=== PATIENT | male | born 1935 | race Caucasian/White ===

== ENCOUNTER 2019-06-05 15:03 | Inpatient (IN) | payer MEDICARE, BC ==
[~2019-06-05] VITALS: Ht 167.6 cm; Wt 87.1 kg
--- NOTE | 2019-06-05 15:15 | PHYS DOC ---
Past History Past Medical History: Dementia, Hypertension Social History Narrative: lives in a nursing facility Adult General Chief Complaint Chief Complaint: PSYCH EVALUATION HPI HPI Patient is an 83-year-old male who presents to the emergency department for medical clearance, prior to behavioral health unit admission he reportedly lives in a nursing facility, and has had increasing agitation in the setting of underlying dementia. He has no medical complaints at this time. Limited records that are available to me have been reviewed. He is oriented to person and his age but not to time or location. Review of Systems Review of Systems Unable to obtain review of systems, secondary to dementia. Physical Exam Physical Exam PHYSICAL EXAM: CONSTITUTIONAL: Well developed, well nourished HEAD: normocephalic, atraumatic EENT: PERRL, EOMI. Conjunctivae normal color, sclerae non-icteric; moist mucous membranes. NECK: Supple, non-tender; no meningismus. LUNGS: Lungs CTA, breathing even and unlabored. Normal air movement. HEART: Regular rate and rhythm, no murmur CHEST: No deformity; non-tender ABDOMEN: The abdomen is soft, and non-tender, no masses or bruits. EXTREM: Normal ROM; no deformity, no calf tenderness. Normal pulses palpable in all extremities. There is no pedal edema. There is muscle wasting noted to the left upper extremity. SKIN: No rash; no diaphoresis NEURO: Alert; there is cognitive impairment consistent with underlying dementia without any definite focal deficit. Current Patient Data Lab Results Laboratory Tests Test 06/05/19 15:07 White Blood Count 6.7 x10^3/uL Red Blood Count 4.29 x10^6/uL Hemoglobin 12.3 g/dL Hematocrit 38.7 % Mean Corpuscular Volume 90 fL Mean Corpuscular Hemoglobin 29 pg Mean Corpuscular Hemoglobin Concent 32 g/dL Red Cell Distribution Width 14.7 % Platelet Count 172 x10^3/uL Neutrophils (%) (Auto) 69 % Lymphocytes (%) (Auto) 17 % Monocytes (%) (Auto) 10 % Eosinophils (%) (Auto) 5 % Basophils (%) (Auto) 0 % Neutrophils # (Auto) 4.6 x10^3uL Lymphocytes # (Auto) 1.1 x10^3/uL Monocytes # (Auto) 0.6 x10^3/uL Eosinophils # (Auto) 0.3 x10^3/uL Basophils # (Auto) 0.0 x10^3/uL Urine Collection Type Unknown Urine Color Yellow Urine Clarity Clear Urine pH 7.5 Urine Specific [place] 1.020 Urine Protein Trace Urine Glucose (UA) Neg mg/dL Urine Ketones (Stick) Neg mg/dL Urine Blood Neg Urine Nitrite Neg Urine Bilirubin Neg Urine Urobilinogen Dipstick 0.2 mg/dL Urine Leukocyte Esterase Neg Urine RBC 1-2 /HPF Urine WBC 1-4 /HPF Urine Squamous Epithelial Cells Occ /LPF Urine Bacteria 0 /HPF Urine Mucus Mod /LPF Sodium Level 147 mmol/L Potassium Level 4.2 mmol/L Chloride Level 110 mmol/L Carbon Dioxide Level 27 mmol/L Anion Gap 10 Blood Urea Nitrogen 19 mg/dL Creatinine 1.3 mg/dL Estimated GFR (Cockcroft-Gault) 53.0 BUN/Creatinine Ratio 15 Glucose Level 116 mg/dL Calcium Level 8.4 mg/dL Magnesium Level 2.2 mg/dL Total Bilirubin 0.3 mg/dL Aspartate Amino Transf (AST/SGOT) 10 U/L Alanine Aminotransferase (ALT/SGPT) 19 U/L Alkaline Phosphatase 92 U/L Total Protein 7.0 g/dL Albumin 3.2 g/dL Albumin/Globulin Ratio 0.8 EKG EKG []Normal sinus rhythm at a rate of 88 beats for minute, left axis deviation, normal intervals, occasional PVCs, there are no acute ischemic ST/T changes. Radiology/Procedures Radiology/Procedures [] Course & Med Decision Making Course & Med Decision Making Pertinent Labs studies reviewed. (See chart for details) [] Dragon Disclaimer Dragon Disclaimer This electronic medical record was generated, in whole or in part, using a voice recognition dictation system. Departure Departure: Impression: Primary Impression: Dementia with behavioral disturbance Disposition: ADMITTED INPATIENT Condition: STABLE Referrals: PCP,NO (PCP) OCTAVIA OTERO MD Jun 05, 2019 15:15
[2019-06-05 15:45] LABS: BASO % 0 % (0-3); EOS # 0.3 x10^3/uL (0.0-0.7); EOS % 5 % (0-3); HEMATOCRIT 38.7 % (39.0-53.0); HEMOGLOBIN 12.3 g/dL (13.0-17.5); LYMPH # 1.1 x10^3/uL (1.0-4.8); LYMPH % 17 % (24-48); MEAN CORPUSCULAR HEMOGLOBIN 29 pg (25-35); MEAN CORPUSCULAR HGB CONC 32 g/dL (31-37); MEAN CORPUSCULAR VOLUME 90 fL (79-100); MONO # 0.6 x10^3/uL (0.0-1.1); MONO % 10 % (0-9); NEUT # 4.6 x10^3uL (1.8-7.7); NEUT % 69 % (31-73); PLATELET COUNT 172 x10^3/uL (140-400); RED BLOOD COUNT 4.29 x10^6/uL (4.30-5.70); RED CELL DISTRIBUTION WIDTH 14.7 % (11.5-14.5); WHITE BLOOD COUNT 6.7 x10^3/uL (4.0-11.0)
[2019-06-05 15:49] LABS: ALBUMIN 3.2 g/dL (3.4-5.0); ALBUMIN/GLOBULIN RATIO 0.8 (1.0-1.7); CALCIUM 8.4 mg/dL (8.5-10.1); CREATININE 1.3 mg/dL (0.7-1.3); MAGNESIUM 2.2 mg/dL (1.8-2.4); POTASSIUM 4.2 mmol/L (3.5-5.1); TOTAL BILIRUBIN 0.3 mg/dL (0.2-1.0)
[2019-06-05 15:53] LABS: BILIRUBIN,URINE NEG (NEG); CLARITY,URINE CLEAR; COLOR,URINE YELLOW; GLUCOSE,URINE NEG (NEG)
[2019-06-05 15:54] LABS: BACTERIA,URINE 0 /HPF (0-FEW); NITRITE,URINE NEG (NEG); SQUAMOUS EPITHELIAL CELL,UR OCC /LPF; UROBILINOGEN,URINE 0.2 mg/dL (0.2 mg/dL)
[2019-06-05] MEDS ORDERED: GUAI120013 PO (16:24)
[2019-06-05] MEDS ORDERED: DIVA250T PO (16:24)
[2019-06-05] MEDS ORDERED: LANO250L TP (16:24)
[2019-06-05] MEDS ORDERED: LORA-254 PO (16:24)
[2019-06-05] MEDS ORDERED: BUPR150T11 PO (16:24)
[2019-06-05] MEDS ORDERED: DIVA500T4 PO (16:24)
[2019-06-05] MEDS ORDERED: LORA10TA3 PO (16:24)
[2019-06-05] MEDS ORDERED: ATOR20TA58 PO (16:24)
[2019-06-05] MEDS ORDERED: NAPR-634 PO ×2 (16:24)
[2019-06-05] MEDS ORDERED: LEVO50TA5 PO (16:24)
[2019-06-05] MEDS ORDERED: QUET50TA5 PO ×2 (16:24)
--- NOTE | 2019-06-05 16:30 | NUR ---
Admission Note with Justification for Admission to [facility] Patient admitted to [facility] for protective oversight for emergency stabilization of acute psychiatric crisis. Pt admitted from: SNF Mode of arrival: EMS Accompanied By: EMS Precipitating behaviors that initiated intake and admission:patient admitted from [facility] through [facility] ED for reportedly threatening staff, waving his fist at staff, being combative with redirection, following staff while threatening them, exit seeking, and refusing medications Description of failure of out patient attempts at stabilization in previous setting list behavior and medication trials: Facility attempted medication changes and redirection Behaviors and assessment findings upon admission: Patient very quiet and withdrawn on admission. He refused to answer most assessment questions. He was dressed neatly, no skin issues detected. Plan: Admit for protective oversight for adjustment and stabilization of medications, behaviors and mood. Intense treatment regimen including groups, medication adjustments, therapy, consistent regimen for ADL's, self care, and sleep hygiene. Daily monitoring by Inpatient staff, Psychiatry, and Medical Physician.
[2019-06-05 17:07] VITALS: BP 136/81
[2019-06-05] MEDS ORDERED: ACETAMINOPHEN 325 MG TABLET PO PRN (17:45)
[2019-06-05] MEDS ORDERED: MAG HYDROX/AL HYDROX/SIMETH 30 ML ORAL.SUSP PO PRN (17:45)
[2019-06-05] MEDS ORDERED: METHYL SALICYLATE/MENTHOL TOPICAL OINTMENT 57GM TUBE. TP PRN (17:45)
[2019-06-05] MEDS ORDERED: NAPROXEN 250 MG TABLET PO PRN (18:00)
[2019-06-05 18:15] LABS: VAL ACID 30 mcg/mL (50-100)
[2019-06-05] MEDS: ATORVASTATIN CALCIUM 20 MG TABLET PO SCH (20:29)
[2019-06-05] MEDS: buPROPion SR 150 MG TABLET.SA PO SCH (20:30)
[2019-06-05] MEDS: QUEtiapine 50 MG TABLET. PO SCH (20:30)
--- NOTE | 2019-06-05 20:58 | PDOC ---
Exam Note: Yves Note: Please also refer to the separate dictated note~for this date of service dictated separately. Discussed the patient with Nursing staff reviewed the chart.~Reviewed interim history and current functioning. Reviewed vital signs,~Labs/ Radiology~and current medications noted below. Continue current treatment with the changes noted in the dictated addendum note Assessment: Vital Signs/I&O: Vital Signs Date Time Temp Pulse Resp B/P (MAP) Pulse Ox O2 Delivery O2 Flow Rate FiO2 06/05/19 17:07 97.5 89 17 136/81 (99) 96 06/05/19 15:05 Room Air Labs: Laboratory Tests Test 06/05/19 15:07 06/05/19 15:08 White Blood Count 6.7 x10^3/uL (4.0-11.0) Red Blood Count 4.29 x10^6/uL (4.30-5.70) L Hemoglobin 12.3 g/dL (13.0-17.5) L Hematocrit 38.7 % (39.0-53.0) L Mean Corpuscular Volume 90 fL (79-100) Mean Corpuscular Hemoglobin 29 pg (25-35) Mean Corpuscular Hemoglobin Concent 32 g/dL (31-37) Red Cell Distribution Width 14.7 % (11.5-14.5) H Platelet Count 172 x10^3/uL (140-400) Neutrophils (%) (Auto) 69 % (31-73) Lymphocytes (%) (Auto) 17 % (24-48) L Monocytes (%) (Auto) 10 % (0-9) H Eosinophils (%) (Auto) 5 % (0-3) H Basophils (%) (Auto) 0 % (0-3) Neutrophils # (Auto) 4.6 x10^3uL (1.8-7.7) Lymphocytes # (Auto) 1.1 x10^3/uL (1.0-4.8) Monocytes # (Auto) 0.6 x10^3/uL (0.0-1.1) Eosinophils # (Auto) 0.3 x10^3/uL (0.0-0.7) Basophils # (Auto) 0.0 x10^3/uL (0.0-0.2) Urine Collection Type Unknown Urine Color Yellow Urine Clarity Clear Urine pH 7.5 Urine Specific [place] 1.020 Urine Protein Trace (NEG-TRACE) Urine Glucose (UA) Neg mg/dL (NEG) Urine Ketones (Stick) Neg mg/dL (NEG) Urine Blood Neg (NEG) Urine Nitrite Neg (NEG) Urine Bilirubin Neg (NEG) Urine Urobilinogen Dipstick 0.2 mg/dL (0.2 mg/dL) Urine Leukocyte Esterase Neg (NEG) Urine RBC 1-2 /HPF (0-2) Urine WBC 1-4 /HPF (0-4) Urine Squamous Epithelial Cells Occ /LPF Urine Bacteria 0 /HPF (0-FEW) Urine Mucus Mod /LPF Sodium Level 147 mmol/L (136-145) H Potassium Level 4.2 mmol/L (3.5-5.1) Chloride Level 110 mmol/L (98-107) H Carbon Dioxide Level 27 mmol/L (21-32) Anion Gap 10 (6-14) Blood Urea Nitrogen 19 mg/dL (8-26) Creatinine 1.3 mg/dL (0.7-1.3) Estimated GFR (Cockcroft-Gault) 53.0 BUN/Creatinine Ratio 15 (6-20) Glucose Level 116 mg/dL (70-99) H Calcium Level 8.4 mg/dL (8.5-10.1) L Magnesium Level 2.2 mg/dL (1.8-2.4) Total Bilirubin 0.3 mg/dL (0.2-1.0) Aspartate Amino Transferase (AST) 10 U/L (15-37) L Alanine Aminotransferase (ALT) 19 U/L (16-63) Alkaline Phosphatase 92 U/L (46-116) Total Protein 7.0 g/dL (6.4-8.2) Albumin 3.2 g/dL (3.4-5.0) L Albumin/Globulin Ratio 0.8 (1.0-1.7) L Valproic Acid Level 30 mcg/mL (50-100) L Valproic Acid Last Dose Date 06/04/19 Valproic Acid Last Dose Time 2100 Current Medications: Meds: Current Medications Medications (Trade) Dose Ordered Sig/Delfino Route PRN Reason Start Time Stop Time Status Last Admin Dose Admin Atorvastatin Calcium (Lipitor) 20 mg QHS PO 06/05/19 21:00 06/05/19 20:29 Bupropion HCl (Wellbutrin Sr) 75 mg BID PO 06/05/19 21:00 06/05/19 20:30 Divalproex Sodium (Depakote Er) 500 mg HS PO 06/05/19 21:00 06/05/19 20:30 Quetiapine Fumarate (SEROquel) 50 mg HS PO 06/05/19 21:00 06/05/19 20:30 I have reviewed the current psychotropics carefully including drug interactions. Risk benefit ratio favors no change other than as noted in my dictated progress note. Diagnosis: Problems: (1) Anxiety disorder (2) Dementia, vascular, with delusions (3) Dementia, vascular, with depression (4) Dementia in Alzheimer's disease with delusions (5) Dementia in Alzheimer's disease with depression (6) Impulse control disorder MANISH ALVARES MD Jun 05, 2019 20:58
[2019-06-05] MEDS ORDERED: DIVALPROEX ER 500 MG TAB.ER.24H PO SCH (21:00)
[2019-06-05] MEDS: MINERAL OIL/PETROLATUM TOPICAL CREAM 113GM JAR. TP SCH (21:00)
[2019-06-05 23:06] LABS: HEMOGLOBIN A1C 6.3 % (4.8-5.6)
--- NOTE | 2019-06-05 23:52 | NUR ---
Nursing Note The patient was located in his room for this shift and was withdrawn during interactions with this nurse and other staff. The patient took his medication whole. The patient refused to answer assessment questions. The patient is currently sleeping in bed.
[2019-06-06] MEDS: LEVOTHYROXINE 50 MCG TABLET PO SCH (04:40)
[2019-06-06] MEDS: MAGNESIUM HYDROXIDE 2,400 MG/30 ML ORAL.SUSP. PO PRN (04:53)
--- NOTE | 2019-06-06 04:56 | NUR ---
Nursing Note the patient received PRN Milk of Magnesia R/T hard abdomen with poor bowel sounds in all quadrants. The patient cannot recall his last BM.
[2019-06-06 05:47] VITALS: BP 156/86
[2019-06-06 08:08] LABS: THYROXINE 6.7 ug/dL (4.5-12.0)
[2019-06-06] MEDS: NAPROXEN 250 MG TABLET PO SCH (08:49)
[2019-06-06] MEDS: buPROPion SR 150 MG TABLET.SA PO SCH ×2 (08:49→21:25)
[2019-06-06] MEDS: MINERAL OIL/PETROLATUM TOPICAL CREAM 113GM JAR. TP SCH ×2 (08:49→21:00)
[2019-06-06] MEDS: CETIRIZINE HCL 10 MG TABLET PO SCH (08:49)
--- NOTE | 2019-06-06 08:59 | NUR ---
Patient attempted to stand up from wheelchair in dining room, became unsteady and almost fell. Nurse was able to catch him and assist him backnto the wheelchair. Fall education provided to patient and he was cautioned to ask for assistance with transfers and/or ambulation. Patient assisted to day room in wheelchair and staff advised that he is unsteady at this time.
[2019-06-06] MEDS ORDERED: DIVALPROEX ER 250 MG TAB.ER.24H. PO SCH (09:00)
--- NOTE | 2019-06-06 11:04 | NUR ---
Patient observed to be combative with staff in day room. He stated he needed to go to the bathroom and when staff attempted to assist him he attempted to hit them. Patient in wheelchair with a chair alarm. Patient arguing with staff and attempting to involve peers in argument. Patient states "you better keep your hands off me" and eventually agreed to be taken to the bathroom in wheelchair. Patient is not cooperative with 2 person assist for ambulation and becomes increasingly combative to staff when assistance is offered or attempted.
--- NOTE | 2019-06-06 11:30 | NUR ---
Patient in [facility] r/t combativeness and refusing to not get out of chair unassisted. Nurse observed him wandering in [facility], he calmed down and was able to attend lunch in dining room with peers. No PRNs given as patient has scheduled seroquel at 1200. Compliant with medications.
[2019-06-06] MEDS: QUEtiapine 50 MG TABLET. PO SCH ×2 (12:50→21:26)
[2019-06-06 14:32] LABS: THYROID STIM HORMONE (TSH) 3.639 uIU/mL (0.358-3.740)
--- NOTE | 2019-06-06 14:41 | NUR ---
PSYCHOSOCIAL ASSESSMENT ADMISSION DATE: 06/05/19 CONTACT INFORMATION: DPOA/Guardian Contact Name: Brie Carmen Contact Address: [place], [place] Contact Phone #: [phone] ETHNIC ORIGIN: REASONS FOR ADMISSION: Aggressive, Agitated, and Combative ADDITIONAL ADMISSION COMMENTS: Per pt. intake, pt. was exit seeking, noncompliant with meds, physically aggressive towards staff, verbal altercation with peer, insomnia, peeing on the floor, and agitated. REASON FOR ADMISSION IN PATIENT/FAMILY'S OWN WORDS: Per pt. , "He's been aggressive." "Hitting and kicking" According to pt. , pt. "doesn't sleep much at night." PATIENT/FAMILY EXPECTATIONS FOR ADMISSION: Per pt. , "I hope they can adjust his medications to keep him calm." LIVING SITUATION: Patient lives with: [facility] Contact Name: [facility] Contact Address: [place], [place] Contact Phone #: [phone] Contact Fax #: [phone] FAMILY RELATIONS: Marital Status: # of Marriages: 1 Pt. was able to share his 's name is Brie. # of Children: 3 Pt. stated he had a boy and two girls but was only able to recall two names. [facility] Family Support: Concerned and Cooperative SIGNIFICANT PSYCHIATRIC/MEDICAL HISTORY: Psychiatric/Treatment History: Pt. shared, "Dementia" from his two brain injuries. After the first brain injury, pt. was "in a coma for thirteen days." "He has never been the same after the second one." Pt. did see a psychiatrist after the brain injuries, "until they moved away." Per pt. intake, pt. has Vascular Dementia with Behaviors, TBI in 2002 and 2005, Depression, and Anxiety. Pertinent Family History: Pt. has no known pertinent family history. HISTORICAL DATA: Childhood Environment: According to pt. , pt. childhood was "kind of sad." Pt. "dad when he was [age]." "His mother worked all the time." Pt. had one older brother and one younger sister. Psychological Abuse: None Drug Abuse History last 12 months: No Comment: According to pt. , "Never." PERSONAL HISTORY: Vocational history: Pt. worked at the "sale barn" around "cattle" according to his . service: N Christian background: Pt. said "Yea" "Pentecostalism" Pt. shared pt. "always went to yazdanism until he got hurt the last time." "Pentecostalism or Presbyterian" Sexual orientation: Heterosexual Educational Level: Pt. graduated from high school. Past/Present Interests/Hobbies: According to pt. , pt. has no current hobbies but use to enjoy "riding a horse." "His hobby was working." Financial support/resources: [employer] Monthly income: $1000 Person handling finances: Brie Carmen Do you have a history of legal problems: N Cultural considerations: Per pt. , "No, not really." SOCIAL RELATIONSHIPS-CURRENT/PAST: [facility]iatrist: [facility] PCP: Dr. Emile Kyle Counselor/Therapist: None [employer]: None Support Group: None Coding Technician/Manager Technical Support: None Other relationships: None STRENGTHS & WEAKNESSES: Patient's strengths: Stable living arrangement and Approachable Patient's weaknesses: Physically Aggressive and Verbally Aggressive PRELIMINARY PLAN OF TREATMENT: Preliminary plan: Medication Stabilization, Monitor Med Effects, Control abnormal behavior, Decrease Outbursts, and Decrease Aggression DISCHARGE PLANNING: Discharge planning/disposition: Current Living Arrangement ADDITIONAL INFORMATION: Pt. struggled to answer most of the questions for this assessment. Pt. , Brie, was contacted for clarification and verification of the information. Pt. shared pt. has "fallen several times", sleeps in the recliner at his facility, and has been gaining weight.
[2019-06-06 15:50] VITALS: BP 125/67
--- NOTE | 2019-06-06 16:18 | HP ---
ADMIT DATE: 06/05/2019 PSYCHIATRIC ADMISSION HISTORY/EVALUATION This late entry 06/05/2019 covers the elements not covered in my initial note. I met with the patient evening of 06/05/2019, previously discussed with Pau Cullen, benefits coordinator and nursing staff, reviewed information from [facility] on a referral from Dr. Emile Kyle, patient's primary care physician and information from the [facility] who [facility] and recommended inpatient psychiatric stabilization on account of his worsening confusion, threatening staff, waving his fist at staff, being combative with redirection, following staff while threatening them, exit seeking and refusing medications. The patient has failed outpatient psychiatric interventions. CHIEF COMPLAINT: "No." HISTORY OF PRESENT ILLNESS: The patient has a long history of dementia, multifactorial including consequent to traumatic brain injury on 2 separate occasions. He has been residing at the above facility for some time, but recently getting increasingly agitated, paranoid, and impulsive. He has had sleep and appetite changes. No active suicidal or homicidal ideation, but the behaviors have been quite dangerous, unmanageable and failed outpatient psychiatric interventions with [facility] and changes in his psychotropics. No clear history of bipolar disorder. PAST PSYCHIATRIC HISTORY: As above. MEDICAL HISTORY: Positive for hyperlipidemia, hypothyroidism, TBI x 2 and chronic constipation. ACCU-CHEKS: None. DIET: Mechanical soft. Takes his medications whole. Ambulates, ad-kathy. CODE STATUS: DNR. DRUG ALLERGIES: Negative. CURRENT PSYCHOTROPICS: Ativan 1 mg every 6 hours p.r.n. anxiety, Wellbutrin 75 mg b.i.d., Depakote ER 250 mg daily, 500 mg at bedtime, Seroquel 50 mg at noon and at bedtime. FAMILY HISTORY: Noncontributory. SOCIAL HISTORY: No history of alcohol, drug abuse, physical, sexual or elder abuse. He is not known to be a perpetrator. REACTION TO HOSPITALIZATION: The patient oblivious of this. ASSETS: Supportive living at the [facility] facility. MENTAL STATUS EXAMINATION: I met with the patient at length individually evening of 06/05/2019 in his room. He is oriented to himself, not very verbal. Insight, judgment, recent and remote memory, attention, concentration, fund of knowledge poor, consistent with his diagnosis. He was quite paranoid, depressed, anxious and restless. LABORATORY DATA: Reviewed. 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 Rest unchanged as noted above. PLAN: Admit to Geropsychiatry Unit at [facility]. I will see the patient daily individually from a psychiatric standpoint. Medical followup with Dr. Soria. Continue the patient on his current psychotropics. Check a valproic acid level, adjust Depakote to reach therapeutic level. May add an SSRI agent since he seems to have some mood and anxiety symptoms with some obsessive thought processes, worsening his agitation and impulsivity. We will make further adjustments as clinically indicated. ESTIMATED LENGTH OF STAY: A 10-12 days. DISPOSITION: Plans back to [facility] when stable. MAN Rosanne ALVARES MD DR: COLLINS/marzena JOB#: [id number] / [id number]
--- NOTE | 2019-06-06 20:43 | PDOC ---
Exam Note: Yves Note: Please also refer to the separate dictated note~for this date of service dictated separately.~Patient seen individually. Discussed the patient with Nursing staff reviewed the chart.~Reviewed interim history and current functioning. Reviewed vital signs,~Labs/ Radiology~and current medications noted below. Continue current treatment with the changes noted in the dictated addendum note Assessment: Vital Signs/I&O: Vital Signs Date Time Temp Pulse Resp B/P (MAP) Pulse Ox O2 Delivery O2 Flow Rate FiO2 06/06/19 15:50 98.4 97 16 125/67 (86) 89 06/05/19 15:05 Room Air I & O 06/05/19 06/05/19 06/06/19 15:00 23:00 07:00 Intake Total 100 ml Balance 100 ml Current Medications: Meds: Current Medications Medications (Trade) Dose Ordered Sig/Delfino Route PRN Reason Start Time Stop Time Status Last Admin Dose Admin Atorvastatin Calcium (Lipitor) 20 mg QHS PO 06/05/19 21:00 06/05/19 20:29 Bupropion HCl (Wellbutrin Sr) 75 mg BID PO 06/05/19 21:00 06/06/19 08:49 Divalproex Sodium (Depakote Er) 250 mg DAILY PO 06/06/19 09:00 06/06/19 17:02 DC 06/06/19 08:49 Divalproex Sodium (Depakote Er) 500 mg HS PO 06/05/19 21:00 06/06/19 17:02 DC 06/05/19 20:30 Levothyroxine Sodium (Synthroid) 50 mcg DAILY06 PO 06/06/19 06:00 06/06/19 04:40 Quetiapine Fumarate (SEROquel) 50 mg HS PO 06/05/19 21:00 06/05/19 20:30 Quetiapine Fumarate (SEROquel) 50 mg NOON PO 06/06/19 12:00 06/06/19 12:50 Multi-Ingred Cream/Lotion/Oil/ Oint (Hydrocerin) 1 janelle BID TP 06/05/19 21:00 06/06/19 08:49 Cetirizine HCl (ZyrTEC) 10 mg DAILY PO 06/06/19 09:00 06/06/19 08:49 Naproxen (Naprosyn) 250 mg DAILY PO 06/06/19 09:00 06/06/19 08:49 I have reviewed the current psychotropics carefully including drug interactions. Risk benefit ratio favors no change other than as noted in my dictated progress note. 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
[2019-06-06] MEDS: ATORVASTATIN CALCIUM 20 MG TABLET PO SCH (21:25)
[2019-06-06] MEDS: DIVALPROEX ER 500 MG TAB.ER.24H PO SCH (21:26)
[2019-06-06] MEDS: LORazepam 1 MG TABLET PO PRN (23:13)
--- NOTE | 2019-06-06 23:23 | CONS ---
DATE OF CONSULTATION: 06/06/2019 REASON FOR CONSULTATION: Medical management. HISTORY OF PRESENT ILLNESS: The patient is an 83-year-old male patient, a resident of the [facility], who was admitted to this unit on account of threatening staff, waving his fist at staff, being combative with redirection, following staff while threatening them, exit seeking, refusing medication, all this in a background of major neurocognitive disorder, vascular Alzheimer with delusion, depression, behavioral disturbances; anxiety disorder, unspecified and impulse control disorder. PAST MEDICAL HISTORY: Significant for hyperlipidemia, hypothyroidism, traumatic brain injury x 2 and chronic constipation. PAST PSYCHIATRIC HISTORY: Significant for dementia, depression, anxiety. ALLERGIES: He has no known drug allergies. MEDICATIONS: He is currently on following medications: He is on loratadine 10 mg once a day, atorvastatin calcium 20 mg once a day, naproxen 220 mg every 8 hours, divalproex sodium 150 mg daily, divalproex 500 mg at bedtime, Wellbutrin extended release 75 mg twice a day, quetiapine fumarate 50 mg at noon and 50 mg at bedtime. He is also on lorazepam 1 mg every 6 hours, Mucinex extended release 1200 mg twice a day, levothyroxine sodium 50 mcg once a day and Eucerin Original Lotion applied topically twice a day for dry itchy skin. FAMILY HISTORY: Noncontributory. SOCIAL HISTORY: He lives in [facility]. He does not really give useful information. PHYSICAL EXAMINATION: GENERAL: When I examined him, the patient was sitting comfortably in his wheelchair, in no apparent distress. There is no pallor, jaundice, cyanosis or thyromegaly. No jugular venous distention. No lower limb edema. VITAL SIGNS: His heart rate was 97, blood pressure was 125/67, temperature was 98.4, respiratory rate was 16, and oxygen saturation was 98%. HEAD, EYES, EARS, NOSE AND THROAT: Showed normocephalic, atraumatic. NECK: Supple. HEART: Showed normal first and second heart sounds with no gallop, rub or murmur. CHEST: Clear to auscultation. No crepitation or rhonchi. ABDOMEN: Distended, soft, nontender. No guarding or rigidity. No organomegaly. All hernial orifices intact. Bowel sounds normal. NEUROLOGIC: He is apparently demented, but without any obvious lateralizing sign. All his cranial nerves are intact. He moves upper extremities without difficulty; however, he is mostly wheelchair bound. He requires assistance with walking. LABORATORY DATA: Showed a white cell count of 6700, hemoglobin 12, hematocrit 38, MCV 90 and platelet count of 172,000. His chemistry showed a serum sodium 147, potassium 4.2, chloride 110, bicarbonate 27, anion gap of 10, BUN 19, creatinine 1.3, estimated GFR was 53 mL per minute, his glucose 116, calcium was 8.4, magnesium 2.2. Total bilirubin, AST, ALT, alkaline phosphatase were normal. Total protein 7, albumin 3.2. His hemoglobin A1c was 6.3%. Serum iron 29, TIBC was 251 and iron saturation was 12. His serum triglycerides were 172, total cholesterol was 168, LDL was 89, VLDL was 34, HDL was 45 and the ratio was 3. His serum vitamin B12 was only 248 pg/mL and 25-hydroxy vitamin D was only 11.4, which is extremely low. His TSH, total T4 and total T3 are normal. His urinalysis was essentially unremarkable. Toxic screen showed that his valproic acid was only 30 mcg/mL, which is definitely subtherapeutic. His treponema pallidum antibodies were nonreactive. Examination of his right foot showed that he has an infected right toe with possible paronychia versus gouty arthritis. His white cell count was only 6,700. He is afebrile with a temperature of 98.4. PLAN: My plan is to replenish his vitamin B12 and vitamin D. I have already started him on cyanocobalamin 1000 mcg intramuscular once a week for 4 weeks and then monthly thereafter and he was started also on cholecalciferol 50,000 units p.o. once a week. I will arrange for him to have his x-ray of his right big toe. I will also check his uric acid, sed rate and CRP and might have to eventually do a bone scan if the x-ray does not show any evidence of osteomyelitis. ALFREDO SHEPARD MD DR: KUN/marzena JOB#: [id number] / [id number]
--- NOTE | 2019-06-07 02:10 | NUR ---
Nursing Note The patient was very irritable and resistive with cares this shift. When staff was helping the patient to bed the patient became combative. The patient did take his medication whole. The patient is currently awake in his room.
[2019-06-07] MEDS: LEVOTHYROXINE 50 MCG TABLET PO SCH (05:46)
[2019-06-07 06:08] VITALS: BP 138/84
[2019-06-07 07:05] LABS: BASO % 0 % (0-3); EOS # 0.2 x10^3/uL (0.0-0.7); EOS % 3 % (0-3); HEMATOCRIT 42.2 % (39.0-53.0); HEMOGLOBIN 13.2 g/dL (13.0-17.5); LYMPH % 13 % (24-48); MEAN CORPUSCULAR HEMOGLOBIN 28 pg (25-35); MEAN CORPUSCULAR HGB CONC 31 g/dL (31-37); MEAN CORPUSCULAR VOLUME 90 fL (79-100); MONO # 0.6 x10^3/uL (0.0-1.1); MONO % 7 % (0-9); NEUT # 6.4 x10^3uL (1.8-7.7); NEUT % 78 % (31-73); PLATELET COUNT 186 x10^3/uL (140-400); RED BLOOD COUNT 4.66 x10^6/uL (4.30-5.70); WHITE BLOOD COUNT 8.3 x10^3/uL (4.0-11.0)
[2019-06-07 07:15] LABS: C REACTIVE PROTEIN 25.9 mg/L (0-3.3); CALCIUM 8.4 mg/dL (8.5-10.1); GFR 71.7; POTASSIUM 4.2 mmol/L (3.5-5.1); URIC ACID 6.9 mg/dL (3.5-7.2)
[2019-06-07 08:19] LABS: SEDIMENTATION RATE 32 (0-15)
[2019-06-07] MEDS: CHOLECALCIFEROL (VITAMIN D3) 50,000 UNIT CAPSULE PO SCH (08:27)
[2019-06-07] MEDS: buPROPion SR 150 MG TABLET.SA PO SCH ×2 (08:27→20:13)
[2019-06-07] MEDS: CYANOCOBALAMIN (VITAMIN B-12) 1,000 MCG/ML VIAL IM SCH (08:27)
[2019-06-07] MEDS: NAPROXEN 250 MG TABLET PO SCH (08:28)
[2019-06-07] MEDS: CETIRIZINE HCL 10 MG TABLET PO SCH (08:28)
[2019-06-07] MEDS: MINERAL OIL/PETROLATUM TOPICAL CREAM 113GM JAR. TP SCH ×2 (08:28→21:00)
--- NOTE | 2019-06-07 09:30 | RAD ---
Three-view right foot study Clinical indications: Swollen and red big toe. FINDINGS: There is a nondisplaced longitudinal fracture of the proximal lateral corner of the first distal phalanx. No dislocation or lytic process is evident. Small plantar spur of the calcaneus is seen. IMPRESSION: Nondisplaced fracture of the first distal phalanx. Electronically signed by: Zechariah Briscoe MD (06/07/2019 9:27 AM) [facility]
--- NOTE | 2019-06-07 10:30 | NUR ---
SW spoke to Candie, Care Plan Nurse at [facility], to share contact information for this SW.
[2019-06-07] MEDS: QUEtiapine 50 MG TABLET. PO SCH ×2 (12:19→20:14)
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
--- NOTE | 2019-06-07 15:41 | NUR ---
Patient arrived 06/05 with a swollen big toe on his right foot. Dr. Soria saw patient 06/06 and ordered labs and an x-ray. An x-ray showed R. great toe broken. CRP 25.9. ESR 32. Uric acid level normal at 6.9. Will advise Dr. Soria at rounds.
[2019-06-07 15:50] VITALS: BP 116/64
[2019-06-07] MEDS: QUEtiapine 25 MG TABLET. PO SCH (17:08)
--- NOTE | 2019-06-07 17:47 | NUR ---
Dr. Soria to consult ortho about xray tomorrow at [place].
[2019-06-07] MEDS: DIVALPROEX ER 500 MG TAB.ER.24H PO SCH (20:14)
[2019-06-07] MEDS: ATORVASTATIN CALCIUM 20 MG TABLET PO SCH (20:14)
[2019-06-07] MEDS: LORazepam 1 MG TABLET PO PRN (20:14)
--- NOTE | 2019-06-07 23:44 | PN ---
DATE: 06/06/2019 PSYCHIATRIC PROGRESS NOTE This late entry 06/06/2019 covers elements not covered in my initial note. SUBJECTIVE: I met with the patient evening of 06/06/2019. Per information from CLEMENTE Lorenzana, the patient's valproic acid level is 30. He is confused. When questioned, he feels he is in [place], [place]. Gait is unsteady, had to be in the west hallway earlier in the day due to agitation. We are checking a uric acid level, questionable gout. REVIEW OF SYSTEMS: Ambulation impaired. No CV, , pulmonary, eye, ENT system symptoms on review. Reliability poor. MENTAL STATUS EXAM: Oriented to himself. Insight, judgment, recent and remote memory, attention, concentration, fund of knowledge poor, consistent with his diagnosis mentioned in my initial note. PLAN: Change the patient's Depakote to Depakote ER 1000 mg p.o. at bedtime. Check CBC, CMP, valproic acid level in 3 days. Rest unchanged including Wellbutrin, Seroquel. MAN Rosanne ALVARES MD DR: COLLINS/marzena JOB#: [id number] / [id number]
--- NOTE | 2019-06-07 23:57 | PN ---
DATE: 06/07/2019 SUBJECTIVE: The patient was seen today, met with the staff, chart reviewed. The patient is currently on wheelchair. The patient admits to having problems with anger control. The patient has been indulging self-destructive behavior, trying to break a door handle, and exit-seeking behaviors. The patient is difficult to redirect, also exhibiting increased confusion and agitation. OBSERVATION: VITAL SIGNS: Temperature 97.6, blood pressure 138/84, pulse 88, respirations 20, O2 sat 96%. Slept about less than an hour. The patient's appetite decreased. The patient's behavior continues to worsen. It was difficult to manage. The patient's current medications include Seroquel 50 mg at night and 25 mg t.i.d., Seroquel 25 mg q. 4 hours p.r.n., Depakote 1000 mg at bedtime, bupropion 75 mg twice a day. The patient is not having any major side effects. LABORATORY DATA: The patient's lab reviewed. The patient's hemoglobin is 13.2. ESR 32, hemoglobin A1c is 6.3. The patient's Depakote level was 30. ASSESSMENT: 1. 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 2. Anxiety disorder, unspecified. 3. Impulse control disorder, unspecified. LENGTH OF STAY: 5-7 days. ОЛЬГА CURTIS MD DR: DOUG/marzena JOB#: [id number] / [id number]
--- NOTE | 2019-06-08 00:17 | NUR ---
Nursing Note the patient was located in the day room for his medication and assessment. The patient remains withdrawn and irritable. The patient continues to be resistive with all cares. The patient received PRN Ativan with his HS medication R/T agitation and aggression with HS cares.
[2019-06-08] MEDS: LEVOTHYROXINE 50 MCG TABLET PO SCH ×2 (05:39→08:55)
[2019-06-08 06:09] VITALS: BP 178/92
[2019-06-08 06:22] VITALS: BP 107/75
[2019-06-08] MEDS: QUEtiapine 25 MG TABLET. PO SCH ×3 (08:55→17:40)
[2019-06-08] MEDS: NAPROXEN 250 MG TABLET PO SCH (08:55)
[2019-06-08] MEDS: CETIRIZINE HCL 10 MG TABLET PO SCH (08:55)
[2019-06-08] MEDS: buPROPion SR 150 MG TABLET.SA PO SCH ×2 (08:56→19:56)
[2019-06-08] MEDS: MINERAL OIL/PETROLATUM TOPICAL CREAM 113GM JAR. TP SCH ×2 (09:01→20:00)
--- NOTE | 2019-06-08 09:52 | NUR ---
Activity Therapy Assessment Completed based on observation and notes as Pt. was unable to answer assessment questions. Pt. was using a wheelchair due to near falls and an unsteady gait upon admission. However, Pt. is resistant to the chair and now uses a walker but remains unsteady on his feet. Pt. has a history of stroke and therefore has limited verbal capacity. He answers questions with short words or phrases and has difficulty with complex or long questions. Pt. is often around group but rarely engages. Pt. will benefit from direct prompting and one on one engagement. Pt. ca be restless, resistant, and combative with cares. Pt. benefits from reminders and repetition for completing tasks. According to Pt. 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 He has no hobbies or interests outside of work and horses. Pt. has three children and has difficulty recalling their names. Pt. memory is limited- he is aware he is not at home but his short term memory seems limited and he has difficulty recalling facts or distant memories. Initial goal aimed to increase engagement: Pt. will participate in three Activity Therapy groups or individual sessions before discharge.
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
--- NOTE | 2019-06-08 10:43 | NUR ---
TIAN spoke to pt. , Brie, to give her an update and to inform her about pt. broken toe. TIAN spoke to Ada, Care Plan Nurse at [facility], to inform her about pt. broken toe. Candie reported pt. did have a fall on 06/04/2019.
--- NOTE | 2019-06-08 11:18 | TX PLAN ---
Interdisciplinary Tx Plan Admission Information Jun 05, 2019 at 16:30 Legal Status (on Admission): Voluntary DPOA/Guardian Name: Brie Carmen Contact Other Contact Name: [facility] Gaby Other Contact Verified Code Status: DNR Allergies: Coded Allergies: No Known Drug Allergies (Unverified , 06/05/19) Estimated Length of Stay: 10 Diagnoses Primary Diagnosis: Major Neurocognitive Disorder, Vascular Alzheimer's with Delusions, Depression with BD, Anxiety Disorder Unspecified, and Impulse Control Disorder Reasons for Admission: Aggressive, Agitated, Combative Problem in Patient's Words: Per pt. , "He's been aggressive." "Hitting and kicking" Problems Active Problems: Per pt. intake, pt. was exit seeking, noncompliant with meds, physically aggressive toward staff, verbal altercation with peer, insomnia, peeing on the floor, and agitated. Inactive Problems: Pt. is medication compliant. Pt Strengths/Limitations Ability for Barton: Poor Cognitive Functioning/Ability: Poor Communication Skills/Ability: Poor Financial Resources: Fair Insight/Judgement: Poor Intellectual Ability: Fair Physical Health: Poor Social Skills: Poor Stability in Family: Fair Verbal Skills: Fair Discharge Criteria Discharge Criteria: OP monitor medical prob, Improved behavior, Improved mood/thought Preliminary Discharge Plan Preliminary DC Plan: Current Living Arrange. Special Precautions Special Precautions: Agitation/Assault Fall Risk: High Initial D/C Plan Pt. will return to [facility] once stable. Identified Discharge Needs: Follow up with PCP Currently Utilized Resources Currently Utilized Resources/P: PCP [facility] Identified Problems/Hx/Goals Objectives/Short-Term Goals Short Term Goals: Control abnormal behavior, Dec. Aggression, Dec. Outbursts, Medication Stabilization, Monitor Med Effects Short Term Goals in Patient's: Pt. unable to verbalize. 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 Education: Pt. graduated from high school. Community Follow-up Follow Up with PCP. Community Provider/Family Inpu: Per pt. , "I hope they can adjust his medications to keep him calm." Treatment Plan Explained Patient/Inking Machine Tender had this treatment plan explained to him/her as indicated by the signature below and has been given the opportunity to ask questions and make suggestions: Date: Patient/Inking Machine Tender Signature: Patient/Inking Machine Tender Decline: KENNETH Alatorre Jun 08, 2019 11:18
[2019-06-08 16:24] VITALS: BP 132/75
[2019-06-08] MEDS: LORazepam 1 MG TABLET PO PRN (17:40)
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
--- NOTE | 2019-06-08 19:54 | NUR ---
WEEKLY ACTIVITY THERAPY NOTE Date of Admission: 06/05/2019 Date of AT Assessment: 06/08/2019 Goal aimed: to increase engagement Initial goal: Pt. will participate in three Activity Therapy groups or individual sessions before discharge. Weekly progress towards goal: on track Group participation level: zero Weekly highlights: meet/assess Pt Behaviors observed: unsteady gait, restless, around group often but rarely engages Plan: no change to goal Beneficial adaptations: direct prompting
[2019-06-08] MEDS: ATORVASTATIN CALCIUM 20 MG TABLET PO SCH (19:56)
[2019-06-08] MEDS: QUEtiapine 50 MG TABLET. PO SCH (19:56)
[2019-06-08] MEDS: DIVALPROEX ER 500 MG TAB.ER.24H PO SCH (19:56)
--- NOTE | 2019-06-08 20:45 | PN ---
DATE: 06/08/2019 SUBJECTIVE: The patient was seen today, met with the staff, chart reviewed. The patient continues to have problems, refusing meds, resistive to care. The patient also received Ativan as p.r.n. for increased agitation. The patient continues to complain of pain in his right toe. The patient is on wheelchair. OBSERVATION: VITAL SIGNS: Temperature 97.2, blood pressure 178/92, pulse 199, respirations 22, O2 sat 91%. Slept about 6 hours last night. The patient's appetite is fair. LABORATORY DATA: The patient's lab reviewed. MEDICATIONS: The patient's current medications include Seroquel 50 mg at night and 25 mg t.i.d., Seroquel 25 mg q. 4 hours p.r.n., Depakote 1000 mg at bedtime, bupropion 75 mg b.i.d. The patient denies of any side effects. ASSESSMENT: Major neurocognitive disorder secondary to vascular, Alzheimer's with delusions, depression, behavioral disturbances and anxiety disorder, unspecified and impulse control disorder, unspecified. PLAN: Continue with the treatment. LENGTH OF STAY: 3-5 days. ОЛЬГА CURTIS MD DR: DOUG/marzena JOB#: [id number] / [id number]
[2019-06-09] MEDS: LEVOTHYROXINE 50 MCG TABLET PO SCH (05:39)
[2019-06-09 06:58] LABS: BASO % 0 % (0-3); EOS # 0.4 x10^3/uL (0.0-0.7); EOS % 5 % (0-3); HEMATOCRIT 37.7 % (39.0-53.0); HEMOGLOBIN 12.2 g/dL (13.0-17.5); LYMPH % 14 % (24-48); MEAN CORPUSCULAR HEMOGLOBIN 29 pg (25-35); MEAN CORPUSCULAR HGB CONC 32 g/dL (31-37); MEAN CORPUSCULAR VOLUME 90 fL (79-100); MONO # 0.7 x10^3/uL (0.0-1.1); MONO % 10 % (0-9); NEUT # 5.1 x10^3uL (1.8-7.7); NEUT % 71 % (31-73); PLATELET COUNT 172 x10^3/uL (140-400); RED CELL DISTRIBUTION WIDTH 14.7 % (11.5-14.5); WHITE BLOOD COUNT 7.3 x10^3/uL (4.0-11.0)
[2019-06-09 07:11] LABS: ALBUMIN 2.9 g/dL (3.4-5.0); ALBUMIN/GLOBULIN RATIO 0.8 (1.0-1.7); ALK PHOS 83 U/L (46-116); ALT (SGPT) 20 U/L (16-63); ANION GAP 7 (6-14); AST (SGOT) 15 U/L (15-37); BLOOD UREA NITROGEN 19 mg/dL (8-26); BUN/CREATININE RATIO 16 (6-20); CALCIUM 8.3 mg/dL (8.5-10.1); CARBON DIOXIDE 30 mmol/L (21-32); CHLORIDE 109 mmol/L (98-107); CREATININE 1.2 mg/dL (0.7-1.3); GFR 58.1; GLUCOSE 99 mg/dL (70-99); POTASSIUM 3.9 mmol/L (3.5-5.1); SODIUM 146 mmol/L (136-145); TOTAL BILIRUBIN 0.3 mg/dL (0.2-1.0); TOTAL PROTEIN 6.4 g/dL (6.4-8.2)
[2019-06-09 07:12] LABS: VAL ACID 55 mcg/mL (50-100)
[2019-06-09 07:18] VITALS: BP 125/74
[2019-06-09] MEDS: NAPROXEN 250 MG TABLET PO SCH (08:25)
[2019-06-09] MEDS: QUEtiapine 25 MG TABLET. PO SCH ×3 (08:25→18:34)
[2019-06-09] MEDS: CETIRIZINE HCL 10 MG TABLET PO SCH (08:25)
[2019-06-09] MEDS: buPROPion SR 150 MG TABLET.SA PO SCH ×2 (08:25→19:46)
[2019-06-09] MEDS: MINERAL OIL/PETROLATUM TOPICAL CREAM 113GM JAR. TP SCH ×2 (09:00→19:45)
[2019-06-09 09:54] VITALS: BP 126/78
[2019-06-09] MEDS: LORazepam 1 MG TABLET PO PRN (14:45)
[2019-06-09 16:27] VITALS: BP 160/77
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
--- NOTE | 2019-06-09 17:05 | NUR ---
Pt was in dayroom sitting in his wc and stood up in an attempt to grab something off of counter and fell backwards onto his wheelchair. Vitals taken, 126/78, HR-87, O2-95%. This nurse assessed pt and Pt didn't appear to be in any pain or distress. No wounds noted on pt. Cellars Supervisor notified as well as Dr Soria. No new orders
[2019-06-09] MEDS: CEPHALEXIN 250 MG CAPSULE PO SCH (19:45)
[2019-06-09] MEDS: DIVALPROEX ER 500 MG TAB.ER.24H PO SCH (19:46)
[2019-06-09] MEDS: QUEtiapine 50 MG TABLET. PO SCH (19:46)
[2019-06-09] MEDS: ATORVASTATIN CALCIUM 20 MG TABLET PO SCH (19:46)
[2019-06-09] MEDS: LACTOBACILLUS RHAMNOSUS GG 1 CAPSULE. PO SCH (19:47)
--- NOTE | 2019-06-10 00:41 | PN ---
DATE: 06/09/2019 SUBJECTIVE: The patient was seen today, met with the staff, chart reviewed. The patient continues to be irritable and comer. He is able to walk with a walker. The patient admits to having problems with mood swings, also anger issues. The patient has not indulged in self-destructive behavior. OBSERVATION: VITAL SIGNS: Temperature 97.8, blood pressure 129/74, pulse 89, respirations 16, O2 sat 95%. Slept about 8 hours last night. The patient is not having any side effects. LABORATORY DATA: The patient's lab reviewed. 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 PLAN: To continue with the treatment. LENGTH OF STAY: 5-6 days. ОЛЬГА CURTIS MD DR: DOUG/marzena JOB#: [id number] / [id number]
[2019-06-10] MEDS: LEVOTHYROXINE 50 MCG TABLET PO SCH (05:48)
[2019-06-10 06:51] VITALS: BP 155/103
[2019-06-10] MEDS: NAPROXEN 250 MG TABLET PO SCH (08:12)
[2019-06-10] MEDS: CEPHALEXIN 250 MG CAPSULE PO SCH ×3 (08:12→19:20)
[2019-06-10] MEDS: LACTOBACILLUS RHAMNOSUS GG 1 CAPSULE. PO SCH ×2 (08:12→19:19)
[2019-06-10] MEDS: QUEtiapine 25 MG TABLET. PO SCH ×3 (08:12→17:17)
[2019-06-10] MEDS: buPROPion SR 150 MG TABLET.SA PO SCH ×2 (08:13→19:19)
[2019-06-10] MEDS: CETIRIZINE HCL 10 MG TABLET PO SCH (08:13)
[2019-06-10] MEDS: MINERAL OIL/PETROLATUM TOPICAL CREAM 113GM JAR. TP SCH ×2 (08:14→19:19)
--- NOTE | 2019-06-10 10:05 | NUR ---
Pt is calm, cooperative, compliant and slow. No agitation, no aggression, no hallucinations or delusions. He is compliant with his medications and assessment.
[2019-06-10] MEDS: LORazepam 1 MG TABLET PO PRN (13:08)
--- NOTE | 2019-06-10 13:10 | NUR ---
Pt is restless, attempting to stand unassisted, move furniture, resistive to redirection. PRN ativan given.
--- NOTE | 2019-06-10 14:56 | RAD ---
BONE SCAN THREE PHASE Three Phase Bone Scan CLINICAL INDICATION: Great toe distal phalanx fracture. Possible osteomyelitis. TECHNIQUE: 25 mCi of technetium-99m MDP were administered intravenously. Flow and blood pool images were obtained of the feet. Approximately 2-4 hours later delayed images were also acquired. PRIOR STUDIES: Right foot radiographs 06/07/2019. FINDINGS: The flow images through the feet demonstrate increased perfusion to the great toe region of the right foot. Background flow elsewhere is mostly symmetric throughout both feet and ankles as well as including a portion of the lower legs. The blood pool image demonstrates the greatest degree of radiotracer activity within the great toe phalanges and within the surrounding soft tissues. There is also mildly increased focal activity at the midfoot bilaterally. The delayed images show localized activity at the distal aspect of the great toe with essentially complete resolution of apparent surrounding soft tissue activity seen on the blood pool phase. Mild focal activity seen in the region of the second toe PIP joint. IMPRESSION: 1. Hypervascularity, hyperemia and increased radiotracer activity on delayed images at the distal aspect of the great toe. This appearance is nonspecific for osteomyelitis versus fracture as both of these etiologies can present with increased activity on all 3 phases and a fracture was well seen involving the great toe distal phalanx on the 06/07/2019 radiographs. It is somewhat beneficial to note that soft tissue activity on the blood pool image is localized about the distal great toe and though this could represent regional hyperemia in the setting of a fracture or cellulitis, the absence of blood pool activity more remote from the fracture site suggests the absence of a diffuse cellulitic process that often accompanies osteomyelitis. 2. Less pronounced localized radiotracer activity in the region of the second toe phalanges on the delayed images is favored secondary to arthrosis. A degree of mild midfoot arthrosis is also likely present bilaterally. Electronically signed by: MISAEL CARNEY MD (06/10/2019 2:53 PM) [facility]
--- NOTE | 2019-06-10 16:32 | NUR ---
Dr. Soria informed of pts results-Continue Keflex. Get pt a hard soled shoe.
[2019-06-10] MEDS: QUEtiapine 50 MG TABLET. PO SCH (19:19)
[2019-06-10] MEDS: ATORVASTATIN CALCIUM 20 MG TABLET PO SCH (19:19)
[2019-06-10] MEDS: DIVALPROEX ER 500 MG TAB.ER.24H PO SCH (19:20)
--- NOTE | 2019-06-10 22:33 | PN ---
DATE: 06/10/2019 SUBJECTIVE: The patient was seen today, met with the staff, chart reviewed. Staff reports that he is still complaining of pain in his right big toe; also irritable, comer and also he had a bone scan study today. The patient also is receiving p.r.n. medications because of his anxiety and agitation. OBSERVATION: VITAL SIGNS: Temperature 98.2, pulse 92, respiration 18, O2 sat 95%. Slept about 5 hours last night. LABORATORY DATA: The patient's lab reviewed. CURRENT MEDICATIONS: Include Seroquel 50 mg at night and 25 mg t.i.d. p.o., Depakote 1000 mg at night, bupropion 75 mg b.i.d. and lorazepam 1 mg q. 6 hours p.r.n. The patient currently is not having any major side effects. ASSESSMENT: 1. 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 2. Anxiety disorder, unspecified. 3. Impulse control disorder, unspecified. PLAN: To continue with the treatment. LENGTH OF STAY: 5 to 6 days. ОЛЬГА CURTIS MD DR: DOUG/marzena JOB#: [id number] / [id number]
--- NOTE | 2019-06-10 23:46 | NUR ---
Last evening pt was in day room some meds were taken whole and remainder crushed in pudding. Pt was mildly resistive to redirection, yelling and struggling with staff at times. Verbal responses are very limited and slow to respond.
[2019-06-11] MEDS: LEVOTHYROXINE 50 MCG TABLET PO SCH (05:56)
[2019-06-11 06:31] VITALS: BP 123/76
[2019-06-11] MEDS: CEPHALEXIN 250 MG CAPSULE PO SCH ×3 (08:35→19:21)
[2019-06-11] MEDS: CETIRIZINE HCL 10 MG TABLET PO SCH (08:36)
[2019-06-11] MEDS: NAPROXEN 250 MG TABLET PO SCH (08:36)
[2019-06-11] MEDS: buPROPion SR 150 MG TABLET.SA PO SCH ×2 (08:36→19:20)
[2019-06-11] MEDS: MINERAL OIL/PETROLATUM TOPICAL CREAM 113GM JAR. TP SCH ×2 (09:00→19:21)
[2019-06-11] MEDS: LACTOBACILLUS RHAMNOSUS GG 1 CAPSULE. PO SCH ×2 (09:00→19:20)
--- NOTE | 2019-06-11 09:10 | NUR ---
Pt is calm, cooperative, compliant and slow. He is drowsy but arousable to his name and touch. No agitation, no aggression, no hallucinations or delusions. He is compliant with his medications and assessment.
[2019-06-11] MEDS: QUEtiapine 25 MG TABLET. PO SCH ×3 (09:37→16:03)
--- NOTE | 2019-06-11 12:22 | NUR ---
Pt is currently alert, non drowsy and receptive to medication.
[2019-06-11 15:37] VITALS: BP 136/80
[2019-06-11] MEDS: QUEtiapine 25 MG TABLET. PO PRN ×2 (17:31→23:41)
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
[2019-06-11] MEDS: QUEtiapine 50 MG TABLET. PO SCH (19:20)
[2019-06-11] MEDS: DIVALPROEX ER 500 MG TAB.ER.24H PO SCH (19:21)
[2019-06-11] MEDS: ATORVASTATIN CALCIUM 20 MG TABLET PO SCH (19:21)
[2019-06-11] MEDS: PATCH REMOVAL. MC SCH (19:22)
--- NOTE | 2019-06-11 21:11 | NUR ---
Nursing note: Patient sitting in day room at shift change, seems to be in good spirits. Patient was compliant with medication and cares. No behaviors noted. Will continue to monitor.
--- NOTE | 2019-06-11 23:10 | PN ---
DATE: 06/11/2019 SUBJECTIVE: The patient was seen today, met with the staff, chart reviewed. The patient is still irritable and comer at times, still complaining of pain in her right big toe. The patient constantly anxious, irritable, and also periods of agitation. OBSERVATION: VITAL SIGNS: Temperature 98.2, pulse 92, respirations 18, O2 sat 95%. The patient's lab reviewed. MEDICATIONS: The patient's current medications include Seroquel 50 mg at night and 25 mg t.i.d. p.o., Depakote 1000 mg at night, bupropion 75 mg b.i.d., and lorazepam 1 mg q. 6 hours p.r.n. The patient is not having any major side effects. ASSESSMENT: Major neurocognitive disorder secondary to traumatic brain injury, vascular and Alzheimer's and delusions; anxiety disorder, unspecified. PLAN: To continue with the treatment. LENGTH OF STAY: 5 days. ОЛЬГА CURTIS MD DR: DOUG/marzena JOB#: [id number] / [id number]
--- NOTE | 2019-06-11 23:43 | NUR ---
Patient very restless and can't sleep, gave PRN seroquel. Will continue to monitor.
[2019-06-12] MEDS: LEVOTHYROXINE 50 MCG TABLET PO SCH (05:04)
--- NOTE | 2019-06-12 05:06 | NUR ---
After PRN seroquel patient was able to sleep most of night. Patient this morning seems well rested. Will continue to monitor.
[2019-06-12 06:02] VITALS: BP 134/85
[2019-06-12] MEDS: LACTOBACILLUS RHAMNOSUS GG 1 CAPSULE. PO SCH ×2 (08:04→19:27)
[2019-06-12] MEDS: buPROPion SR 150 MG TABLET.SA PO SCH ×2 (08:04→19:26)
[2019-06-12] MEDS: NAPROXEN 250 MG TABLET PO SCH (08:04)
[2019-06-12] MEDS: QUEtiapine 25 MG TABLET. PO SCH ×2 (08:04→12:11)
[2019-06-12] MEDS: CEPHALEXIN 250 MG CAPSULE PO SCH ×3 (08:04→19:27)
[2019-06-12] MEDS: CETIRIZINE HCL 10 MG TABLET PO SCH (08:04)
[2019-06-12] MEDS: MINERAL OIL/PETROLATUM TOPICAL CREAM 113GM JAR. TP SCH ×2 (08:05→20:49)
[2019-06-12] MEDS: LIDOCAINE (700MG/PATCH) PATCH. TD SCH (08:05)
--- NOTE | 2019-06-12 08:57 | NUR ---
He is compliant with his medications and assessment. Pt is calm, cooperative, compliant and slow. No agitation, no aggression, no hallucinations or delusions.
--- NOTE | 2019-06-12 14:15 | NUR ---
Spoke to Candie in materials management regarding a hard soled shoe for the pt. She stated she will get the correct size for the pt and bring it up or order it if she does not have his size.
[2019-06-12 15:42] VITALS: BP 136/78
[2019-06-12] MEDS: QUEtiapine 50 MG TABLET. PO SCH ×2 (17:08→19:27)
[2019-06-12] MEDS: ATORVASTATIN CALCIUM 20 MG TABLET PO SCH (19:27)
[2019-06-12] MEDS: DIVALPROEX ER 500 MG TAB.ER.24H PO SCH (19:28)
[2019-06-12] MEDS: PATCH REMOVAL. MC SCH (20:49)
--- NOTE | 2019-06-13 01:25 | NUR ---
Last evening Vikas sat in day room he was pleasant and more interactive with staff. When HS cares were done he was mildly resistive to care then calm after care complete. Meds were taken whole from a spoon as he has some difficulty handling a med cup.
--- NOTE | 2019-06-13 01:31 | PN ---
DATE: 06/12/2019 SUBJECTIVE: The patient was seen today, met with the staff, chart reviewed. The patient's behavior remains the same. He has been restless, resistive to care, indifferent to surroundings, not able to interact with the staff or residents. OBSERVATION: VITAL SIGNS: Temperature 97.5, blood pressure 134/85, pulse 90, respirations 20, O2 sat 91%. Slept about 5 hours last night. CURRENT MEDICATIONS: He is currently on Seroquel 50 mg at night, 25 mg t.i.d. p.o.; Depakote 1000 mg at night; bupropion 75 mg b.i.d. and lorazepam 1 mg every 6 hours p.r.n. The patient is not having any side effects. ASSESSMENT: 1. Major neurocognitive disorder secondary to traumatic brain injury, vascular and Alzheimer's with delusions, 2. Anxiety disorder, unspecified. PLAN: Continue with the treatment. LENGTH OF STAY: 5 days. ОЛЬГА CURTIS MD DR: DOUG/marzena JOB#: [id number] / [id number]
[2019-06-13] MEDS: LEVOTHYROXINE 50 MCG TABLET PO SCH (05:38)
[2019-06-13 06:16] VITALS: BP 154/81
[2019-06-13] MEDS: LIDOCAINE (700MG/PATCH) PATCH. TD SCH (08:37)
[2019-06-13] MEDS: buPROPion SR 150 MG TABLET.SA PO SCH ×2 (08:37→19:55)
[2019-06-13] MEDS: LACTOBACILLUS RHAMNOSUS GG 1 CAPSULE. PO SCH ×2 (08:37→19:56)
[2019-06-13] MEDS: CETIRIZINE HCL 10 MG TABLET PO SCH (08:38)
[2019-06-13] MEDS: MINERAL OIL/PETROLATUM TOPICAL CREAM 113GM JAR. TP SCH ×2 (08:38→20:40)
[2019-06-13] MEDS: NAPROXEN 250 MG TABLET PO SCH (08:38)
[2019-06-13] MEDS: QUEtiapine 50 MG TABLET. PO SCH ×4 (08:38→19:56)
[2019-06-13] MEDS: CEPHALEXIN 250 MG CAPSULE PO SCH ×4 (08:38→19:55)
--- NOTE | 2019-06-13 08:44 | NUR ---
Wound Care Wound care consult for wound to right great toe. Pt has scab at base of toe nail with creamy drainage coming out from under nail. Toe is slightly swollen and tender, bone scan shows a fracture. Painted toe with Betadine and left RONAN. Discussed with Marianela CORNEJO who will discuss with Dr Soria since podiatry is not available at [facility]. WC will continue to follow for possible changes.
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
--- NOTE | 2019-06-13 11:23 | NUR ---
Dr. Soria has ordered weight bearing as tolerated with special shoe for right foot.
--- NOTE | 2019-06-13 12:34 | NUR ---
Patient very resistive with 1200 seroquel. Nurse offered medication multiple times and patient repeatedly stated "I already took that medication". Eventually medication was given crushed in chocolate pudding. Patient then refused pudding. Pudding placed on patient tray with medication in first bite. Patient eventually ate the entire container of pudding.
[2019-06-13 16:04] VITALS: BP 138/68
[2019-06-13] MEDS: ATORVASTATIN CALCIUM 20 MG TABLET PO SCH (19:55)
[2019-06-13] MEDS: DIVALPROEX ER 500 MG TAB.ER.24H PO SCH (19:56)
[2019-06-13] MEDS: PATCH REMOVAL. MC SCH (20:40)
--- NOTE | 2019-06-14 01:08 | PN ---
DATE: 06/13/2019 SUBJECTIVE: The patient was seen today, met with the staff, chart reviewed. The patient's behavior remains the same. He still withdrawn, isolative, resistive to care, likes to be left alone. OBSERVATION: VITAL SIGNS: Temperature 97.6, blood pressure 154/81, pulse 88, respirations 18, O2 sat 92%. GENERAL: Slept about 5 hours last night. The patient's appetite is fair. MEDICATIONS: The patient's current medications include Seroquel 50 mg at night and 25 mg b.i.d. p.o., Depakote 1000 mg at night, bupropion 75 mg b.i.d., and lorazepam 1 mg every q. 6 hours p.r.n. The patient is not having any side effects to medications. LABORATORY DATA: The patient's lab reviewed. ASSESSMENT: 1. 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 2. Anxiety disorder, unspecified. PLAN: To continue with the treatment. LENGTH OF STAY: 5-6 days. ОЛЬГА CURTIS MD DR: DOUG/marzena JOB#: [id number] / [id number]
--- NOTE | 2019-06-14 02:20 | NUR ---
Pt has been pleasant somewhat social and cooperative while in the day room. Meds were taken whole. He was resistive and uncooperative with hs cares. Since going to bed he has been sleeping well.
[2019-06-14] MEDS: LEVOTHYROXINE 50 MCG TABLET PO SCH (05:48)
[2019-06-14 06:14] VITALS: BP 135/70
[2019-06-14] MEDS: LIDOCAINE (700MG/PATCH) PATCH. TD SCH (08:41)
[2019-06-14] MEDS: LACTOBACILLUS RHAMNOSUS GG 1 CAPSULE. PO SCH ×2 (08:42→21:02)
[2019-06-14] MEDS: QUEtiapine 50 MG TABLET. PO SCH ×4 (08:43→21:03)
[2019-06-14] MEDS: CHOLECALCIFEROL (VITAMIN D3) 50,000 UNIT CAPSULE PO SCH (08:43)
[2019-06-14] MEDS: CETIRIZINE HCL 10 MG TABLET PO SCH (08:43)
[2019-06-14] MEDS: buPROPion SR 150 MG TABLET.SA PO SCH ×2 (08:43→21:03)
[2019-06-14] MEDS: NAPROXEN 250 MG TABLET PO SCH (08:43)
[2019-06-14] MEDS: MINERAL OIL/PETROLATUM TOPICAL CREAM 113GM JAR. TP SCH ×2 (08:44→21:02)
[2019-06-14] MEDS: CEPHALEXIN 250 MG CAPSULE PO SCH ×3 (08:44→21:03)
[2019-06-14] MEDS: CYANOCOBALAMIN (VITAMIN B-12) 1,000 MCG/ML VIAL IM SCH (08:44)
--- NOTE | 2019-06-14 10:21 | NUR ---
Patient took half of his morning medications then said "that's it, that's all I'm taking". Remainder of medications given crushed and hidden in chocolate pudding. Patient compliant with meds in pudding. Patient resistive with lidoderm patch, attempting to swat at nurse. He was compliant with weekly B12 injection given in his left deltoid. Patient in day room but not participating in group.
[2019-06-14 16:56] VITALS: BP 121/74
--- NOTE | 2019-06-14 18:01 | NUR ---
Patient was very resistive with 1700 medications. Medications were crushed and put into chocolate ice cream. Patient put himself on the floor at the end of dinner. It was a behavioral incident and no injuries occurred.
[2019-06-14] MEDS: PATCH REMOVAL. MC SCH (21:00)
[2019-06-14] MEDS: DIVALPROEX ER 500 MG TAB.ER.24H PO SCH (21:03)
[2019-06-14] MEDS: ATORVASTATIN CALCIUM 20 MG TABLET PO SCH (21:03)
--- NOTE | 2019-06-14 23:47 | NUR ---
Pt was located in the dayroom this evening. Pt restless at times, attempting to slide off the couch to the floor. Pt redirected numerous times to sit back on the couch. Pt compliant with first spoonful of whole medications, however he chewed the pills. The remainder of HS medications were crushed and placed in one bite of chocolate pudding. Pt was not combative with cares this evening.
--- NOTE | 2019-06-14 23:52 | PN ---
DATE: 06/14/2019 SUBJECTIVE: The patient was seen today, met with the staff, chart reviewed. The patient's behavior remains the same, still isolative, withdrawn, resistive to care and wants to be left alone. OBSERVATION: VITAL SIGNS: Temperature 97.9, blood pressure 135/70, pulse 78, respiration 18, O2 sat 96%. Slept about 7 hours last night. The patient is not having any side effects. LABORATORY DATA: The patient's lab reviewed. ASSESSMENT: 1. 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 2. Anxiety disorder, unspecified. PLAN: To continue with the treatment. LENGTH OF STAY: 5-6 days. ОЛЬГА CURTIS MD DR: DOUG/marzena JOB#: [id number] / [id number]
[2019-06-15] MEDS: LEVOTHYROXINE 50 MCG TABLET PO SCH (05:28)
[2019-06-15 06:00] VITALS: BP 151/77
[2019-06-15] MEDS: buPROPion SR 150 MG TABLET.SA PO SCH ×2 (08:27→20:20)
[2019-06-15] MEDS: CEPHALEXIN 250 MG CAPSULE PO SCH ×3 (08:28→20:19)
[2019-06-15] MEDS: NAPROXEN 250 MG TABLET PO SCH (08:28)
[2019-06-15] MEDS: QUEtiapine 50 MG TABLET. PO SCH ×4 (08:28→20:19)
[2019-06-15] MEDS: CETIRIZINE HCL 10 MG TABLET PO SCH (08:28)
[2019-06-15] MEDS: LACTOBACILLUS RHAMNOSUS GG 1 CAPSULE. PO SCH ×2 (08:28→20:20)
[2019-06-15] MEDS: MINERAL OIL/PETROLATUM TOPICAL CREAM 113GM JAR. TP SCH ×2 (08:29→20:20)
[2019-06-15] MEDS: LIDOCAINE (700MG/PATCH) PATCH. TD SCH (08:29)
--- NOTE | 2019-06-15 10:40 | NUR ---
TIAN contacted Candie, [facility], to give her an update on pt. progress. Candie shared they are not a locked unit, but she does believe there are a couple in the area if needed. TIAN contacted pt. , Brie, to give her an update on pt. TIAN shared pt. continues to be inconsistent with medications, resistive with cares, and has been combative at times. TIAN will contact Brie next week to give her an update on pt. progress.
--- NOTE | 2019-06-15 10:57 | NUR ---
Patient resistive with medications offered whole, gave morning medications crushed in chocolate pudding and patient was compliant. Patient sits on the edge of the seat of his wheelchair, he can sometimes scoot back in chair when asked. Patient very resistive/combative in shower. Shower started with staff x3 and ended with staff x5. Patient was hitting and kicking, whipping staff with soiled towels. He attempted to punch this nurse and bite while nurse was assisting with dressing. Patient resistive with transfer from shower chair to wheelchair and attempted to " weight".
--- NOTE | 2019-06-15 12:27 | NUR ---
WEEKLY ACTIVITY THERAPY NOTE Date of Admission: 06/05/2019 Date of AT Assessment: 06/08/2019 Goal aimed: to increase engagement Initial goal: Pt. will participate in three Activity Therapy groups or individual sessions before discharge. Weekly progress towards goal: 07/07 (06/12-Guess the Gift) Group participation level: minimal in one group Weekly highlights: squeezed gift bags but did not make guesses Behaviors observed: often sleeping and in day room, restless with many attempts to get out of wheelchair, smiles often Plan: no change to goal Beneficial adaptations: direct prompting
[2019-06-15] MEDS: MAGNESIUM HYDROXIDE 2,400 MG/30 ML ORAL.SUSP. PO PRN (12:42)
--- NOTE | 2019-06-15 12:47 | NUR ---
Patient given MOM with lunch. No bowel movement documented since 06/08. Patient had "smear" in shower this morning. MOM given in a small amount of chocolate boost. Medications taken whole.
[2019-06-15 16:00] VITALS: BP 136/83
[2019-06-15] MEDS: DIVALPROEX ER 500 MG TAB.ER.24H PO SCH (20:18)
[2019-06-15] MEDS: ATORVASTATIN CALCIUM 20 MG TABLET PO SCH (20:19)
[2019-06-15] MEDS: PATCH REMOVAL. MC SCH (21:00)
--- NOTE | 2019-06-15 22:43 | NUR ---
Nsg Note: Patient in day room at time of medication administration and assessments. Patient quiet but calm, compliant and cooperative with cares. Took medications crushed in pudding. Patient sleeping with HOB up 90*, having hard time breathing laying down. Patient agitated about wound care tonight. Other than that, no other notable behaviors at this time.
--- NOTE | 2019-06-16 00:12 | PN ---
DATE: 06/15/2019 SUBJECTIVE: The patient was seen today, met with the staff, chart reviewed. The patient continues to be restless, not exhibiting any combative behavior and easy to redirect. OBSERVATION: VITAL SIGNS: Temperature 97.7, blood pressure 151/77, pulse 62, respirations 24, O2 sat 93%. GENERAL: Slept about 4 hours last night. LABORATORY DATA: The patient's lab reviewed. MEDICATIONS: The patient's current medications include Seroquel 50 mg t.i.d. and 50 mg at night. The patient is also on Seroquel 25 mg q. 4 hours p.r.n., Depakote 1000 mg at night, bupropion 75 mg b.i.d., and lorazepam 1 mg every 6 hours p.r.n. The patient is not having any side effects to medications. ASSESSMENT: 1. 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 2. Anxiety disorder, unspecified. PLAN: To continue with the treatment. LENGTH OF STAY: 5 to 6 days. ОЛЬГА CURTIS MD DR: DOUG/marzena JOB#: [id number] / [id number]
[2019-06-16] MEDS: LEVOTHYROXINE 50 MCG TABLET PO SCH (05:12)
[2019-06-16 06:06] VITALS: BP 146/71
[2019-06-16] MEDS: MINERAL OIL/PETROLATUM TOPICAL CREAM 113GM JAR. TP SCH ×2 (08:14→21:00)
[2019-06-16] MEDS: LACTOBACILLUS RHAMNOSUS GG 1 CAPSULE. PO SCH ×2 (08:22→20:05)
[2019-06-16] MEDS: LIDOCAINE (700MG/PATCH) PATCH. TD SCH (08:22)
[2019-06-16] MEDS: buPROPion SR 150 MG TABLET.SA PO SCH ×2 (08:23→20:03)
[2019-06-16] MEDS: CEPHALEXIN 250 MG CAPSULE PO SCH ×3 (08:23→20:05)
[2019-06-16] MEDS: NAPROXEN 250 MG TABLET PO SCH (08:23)
[2019-06-16] MEDS: QUEtiapine 50 MG TABLET. PO SCH ×4 (08:24→20:04)
[2019-06-16] MEDS: CETIRIZINE HCL 10 MG TABLET PO SCH (08:24)
--- NOTE | 2019-06-16 15:32 | NUR ---
Pt up in chair for meal. Confused but pleasant. Dr Jo to see pt BLE. Lower extremities red but not warm. Small scratches noted. Order for PRN Atarax for itching. Stated the redness was stasis dermatitis.
[2019-06-16 15:34] VITALS: BP 147/91
[2019-06-16] MEDS: DIVALPROEX ER 500 MG TAB.ER.24H PO SCH (20:03)
[2019-06-16] MEDS: ATORVASTATIN CALCIUM 20 MG TABLET PO SCH (20:04)
[2019-06-16] MEDS: hydrOXYzine HCL 25 MG TABLET PO PRN (20:07)
[2019-06-16] MEDS: LORazepam 1 MG TABLET PO PRN (20:57)
[2019-06-16] MEDS: PATCH REMOVAL. MC SCH (21:00)
--- NOTE | 2019-06-17 01:30 | PN ---
DATE: 06/16/2019 SUBJECTIVE: The patient was seen today, met with the staff, chart reviewed. The patient currently on wheelchair and also has some drooling. The patient continues to have behavior problems, feeling restless, combative behaviors. OBSERVATION: VITAL SIGNS: Temperature 97.4, blood pressure 146/71, pulse 75, respirations 20, O2 sat 95%. GENERAL: Slept about 6 hours last night. LABORATORY DATA: The patient's lab reviewed. MEDICATIONS: The patient's current medications include Seroquel 50 mg t.i.d. and 50 mg at night, Seroquel 25 mg q. 4 hours p.r.n., Depakote 1000 mg at night, bupropion 75 mg b.i.d., and lorazepam 1 mg every 6 hours p.r.n. ASSESSMENT: 1. 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 2. Anxiety disorder, unspecified. PLAN: To continue with the treatment. LENGTH OF STAY: 5 to 6 days. ОЛЬГА CURTIS MD DR: DOUG/marzena JOB#: [id number] / [id number]
--- NOTE | 2019-06-17 02:06 | NUR ---
Nursing Note Pt aggressive and combative at shift change. Pt punching and hitting at staff, attempting to open the door to the patio, refuses to listen and follow directions. Pt given ativan and atarax for behaviors and itching, has rashes and open areas to legs bilat.
[2019-06-17] MEDS: LEVOTHYROXINE 50 MCG TABLET PO SCH (05:44)
[2019-06-17 06:16] VITALS: BP 155/100
[2019-06-17] MEDS: LIDOCAINE (700MG/PATCH) PATCH. TD SCH (08:11)
[2019-06-17] MEDS: CETIRIZINE HCL 10 MG TABLET PO SCH (08:11)
[2019-06-17] MEDS: NAPROXEN 250 MG TABLET PO SCH (08:11)
[2019-06-17] MEDS: buPROPion SR 150 MG TABLET.SA PO SCH (08:11)
[2019-06-17] MEDS: CEPHALEXIN 250 MG CAPSULE PO SCH ×3 (08:12→21:25)
[2019-06-17] MEDS: QUEtiapine 50 MG TABLET. PO SCH ×4 (08:12→21:26)
[2019-06-17] MEDS: LACTOBACILLUS RHAMNOSUS GG 1 CAPSULE. PO SCH ×2 (08:12→21:25)
[2019-06-17] MEDS: MINERAL OIL/PETROLATUM TOPICAL CREAM 113GM JAR. TP SCH ×2 (08:12→21:39)
[2019-06-17 15:40] VITALS: BP 120/62
--- NOTE | 2019-06-17 16:13 | NUR ---
Pt up in wc for meals. Has been drowsy intermittently. resistive to cares at times. Meds taken with much encouragement.
[2019-06-17] MEDS: PATCH REMOVAL. MC SCH (21:00)
[2019-06-17] MEDS: DIVALPROEX ER 500 MG TAB.ER.24H PO SCH (21:26)
[2019-06-17] MEDS: ATORVASTATIN CALCIUM 20 MG TABLET PO SCH (21:26)
[2019-06-18] MEDS: QUEtiapine 25 MG TABLET. PO PRN (01:35)
[2019-06-18] MEDS: hydrOXYzine HCL 25 MG TABLET PO PRN ×2 (02:40→17:56)
--- NOTE | 2019-06-18 04:04 | NUR ---
Nursing Note The patient was located in the day room for his assessment and medication pass. The patient was restless and continuously attempted to get out of his chair without assistance. The patient took his medication whole and was cooperative with his cares and shower. The patient received PRN Seroquel @0135 for insomnia and received PRN Atarax @0240 for itching. The patient is currently sleeping in his room.
[2019-06-18] MEDS: LEVOTHYROXINE 50 MCG TABLET PO SCH (05:45)
[2019-06-18] MEDS: MAGNESIUM HYDROXIDE 2,400 MG/30 ML ORAL.SUSP. PO PRN (05:51)
[2019-06-18 05:53] VITALS: BP 121/72
--- NOTE | 2019-06-18 06:29 | NUR ---
Nursing Note the patient received PRN MOM R/T last documented BM 06/15/19
[2019-06-18] MEDS: buPROPion 100 MG TABLET PO SCH ×3 (09:00→20:22)
[2019-06-18] MEDS: MINERAL OIL/PETROLATUM TOPICAL CREAM 113GM JAR. TP SCH ×2 (09:00→21:45)
[2019-06-18] MEDS: LIDOCAINE (700MG/PATCH) PATCH. TD SCH (09:00)
[2019-06-18] MEDS: CEPHALEXIN 250 MG CAPSULE PO SCH ×3 (09:47→20:23)
[2019-06-18] MEDS: QUEtiapine 50 MG TABLET. PO SCH ×4 (09:48→20:23)
[2019-06-18] MEDS: NAPROXEN 250 MG TABLET PO SCH (09:48)
[2019-06-18] MEDS: CETIRIZINE HCL 10 MG TABLET PO SCH (09:48)
[2019-06-18] MEDS: LACTOBACILLUS RHAMNOSUS GG 1 CAPSULE. PO SCH ×2 (09:48→20:22)
[2019-06-18] MEDS ORDERED: MAGNESIUM CITRATE 296 ML SOLUTION. PO ONE (11:00)
[2019-06-18 16:15] VITALS: BP 110/75
--- NOTE | 2019-06-18 18:05 | NUR ---
Pt up in wc for meals. compliant with meds with encouragement. Pt has rash on abd and B flanks. Itchy. Atarax given. Hydrocortisone applied. Has been intermittently drowsy throughout day.
--- NOTE | 2019-06-18 18:10 | NUR ---
Pt up to BR with assist. Had Xlg results from [facility].
[2019-06-18] MEDS: ATORVASTATIN CALCIUM 20 MG TABLET PO SCH (20:23)
[2019-06-18] MEDS: DIVALPROEX ER 500 MG TAB.ER.24H PO SCH (20:23)
[2019-06-18] MEDS: HYDROCORTISONE 1% TOPICAL OINTMENT 30GM TUBE. TP SCH (21:00)
[2019-06-18] MEDS: PATCH REMOVAL. MC SCH (21:00)
[2019-06-18] MEDS: LORazepam 1 MG TABLET PO PRN (21:45)
[2019-06-19] MEDS: LEVOTHYROXINE 50 MCG TABLET PO SCH (05:11)
[2019-06-19 05:31] VITALS: BP 145/70
[2019-06-19] MEDS: CETIRIZINE HCL 10 MG TABLET PO SCH (08:18)
[2019-06-19] MEDS: NAPROXEN 250 MG TABLET PO SCH (08:18)
[2019-06-19] MEDS: buPROPion 100 MG TABLET PO SCH ×3 (08:19→20:38)
[2019-06-19] MEDS: LACTOBACILLUS RHAMNOSUS GG 1 CAPSULE. PO SCH ×2 (08:19→20:37)
[2019-06-19] MEDS: LIDOCAINE (700MG/PATCH) PATCH. TD SCH (08:19)
[2019-06-19] MEDS: CEPHALEXIN 250 MG CAPSULE PO SCH (08:20)
[2019-06-19] MEDS: HYDROCORTISONE 1% TOPICAL OINTMENT 30GM TUBE. TP SCH ×2 (08:20→20:37)
[2019-06-19] MEDS: MINERAL OIL/PETROLATUM TOPICAL CREAM 113GM JAR. TP SCH ×2 (08:20→20:37)
[2019-06-19] MEDS: QUEtiapine 50 MG TABLET. PO SCH ×4 (08:20→20:37)
--- NOTE | 2019-06-19 09:59 | PN ---
DATE: 06/18/2019 SUBJECTIVE: The patient was seen today, met with the staff, chart reviewed. The patient's behavior has not changed. He is withdrawn, isolative, able to hold a conversation very limited. The patient is also exhibiting increased anxiety, agitation at times. The patient has difficulty following directions, difficult to redirect. The patient has been compliant with the medications so far. The patient also has no awareness of his problems. He attempts to get up from the wheelchair without assistance and also is very confused. OBSERVATION: VITAL SIGNS: Temperature 97.2, blood pressure 121/72, pulse 89, respirations 20, O2 sat 95%. Slept about 4 hours last night. The patient's appetite is fair. He needs assistance with ADLs. LABORATORY DATA: The patient's lab reviewed. MEDICATIONS: The patient's current medications include Seroquel 50 mg t.i.d. and 50 mg at night, Seroquel 25 mg q. 4 hours p.r.n., Depakote 1000 mg at night, bupropion 75 mg b.i.d., and lorazepam 1 mg every 6 hours p.r.n. ASSESSMENT: 1. 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 2. Anxiety disorder, unspecified. PLAN: To continue with the treatment. LENGTH OF STAY: 5 to 6 days. ОЛЬГА CURTIS MD DR: DOUG/marzena JOB#: [id number] / [id number]
--- NOTE | 2019-06-19 09:59 | PN ---
DATE: 06/17/2019 SUBJECTIVE: The patient was seen today, met with the staff, chart reviewed. The patient continues to be combative, increased agitation, decreased sleep, difficult to follow directions. The patient is withdrawn most of the time, noncommunicative, not socializing, not interacting with the staff or residents. OBSERVATION: VITAL SIGNS: Temperature 97.4, blood pressure 144/71, pulse 75, respirations 20, O2 sat 95%. Slept about 5 hours last night. LABORATORY DATA: The patient's lab reviewed. CURRENT MEDICATIONS: Include Seroquel 50 mg t.i.d. and Seroquel 50 mg at night, Seroquel 25 mg q. 4 hours p.r.n., Depakote 1000 mg at night. The patient's bupropion was decreased to 75 mg daily from 75 mg b.i.d. The patient is also on lorazepam 1 mg q. 6 hours p.r.n. ASSESSMENT: 1. 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 2. Anxiety disorder, unspecified. PLAN: To continue with the treatment. LENGTH OF STAY: 5 to 6 days. ОЛЬГА CURTIS MD DR: DOUG/marzena JOB#: [id number] / [id number]
--- NOTE | 2019-06-19 11:15 | NUR ---
TIAN received a call from pt. , Brie, who reports pt. children were here visiting over the weekend and felt pt. was "sedated". Brie believes pt. children visited pt. at the 4 o'clock visiting hour, and pt. "couldn't keep his eyes open". TIAN will share this information with the doctor. She went on to share pt. children did not feel the unit was adequately staffed, as pt. "chair alarm went off for 15 minutes" before anyone came in. TIAN will pass this information on to the self contained behavior unit teacher. TIAN did share pt. is awake and sitting in the day room at this time. TIAN will touch base with Brie after treatment team on 06/22/2019.
--- NOTE | 2019-06-19 14:26 | NUR ---
Pt in dining room for morning meds and assessment. Pt non verbal with assessment and orientation questions. Otherwise pt calm and compliant with cares. No agitation or aggression noted.
[2019-06-19 15:32] VITALS: BP 144/97
[2019-06-19] MEDS: hydrOXYzine HCL 25 MG TABLET PO PRN (20:39)
[2019-06-19] MEDS: PATCH REMOVAL. MC SCH (20:39)
[2019-06-19] MEDS: ATORVASTATIN CALCIUM 20 MG TABLET PO SCH (20:39)
[2019-06-19] MEDS: DIVALPROEX ER 500 MG TAB.ER.24H PO SCH (20:39)
--- NOTE | 2019-06-19 23:07 | NUR ---
Pt sitting quietly in the day room at shift change. Pt calm and pleasantly confused. Pt cooperative with assessment and compliant with medications administered whole.
--- NOTE | 2019-06-20 00:38 | PN ---
DATE: 06/19/2019 SUBJECTIVE: The patient was seen today, met with the staff, chart reviewed. Staff reports he is compliant with the medication. Still attempting to get up without assistance. The patient is also exhibiting fluctuating mood, periods of agitation, and also the patient tends to sleep in between. Family was concerned about the patient may be taking too much medication because whenever they come to visit him, he has been sleeping. OBSERVATION: VITAL SIGNS: Temperature 97.3, blood pressure 145/70, pulse 54, respirations 20, O2 sat 100%. GENERAL: Slept about 4 hours last night. The patient's appetite is fair. LABORATORY DATA: The patient's lab reviewed. MEDICATIONS: The patient's current medications include Seroquel 50 mg t.i.d. and 50 mg at night, Seroquel 25 mg q. 4 hours p.r.n., Depakote 100 mg at night, bupropion 75 mg b.i.d., and lorazepam 1 mg every 6 hours p.r.n. The patient's lab reviewed. The patient's Depakote level was 55 on 06/09/2019. The patient has not had any falls. ASSESSMENT: 1. Major neurocognitive disorder secondary to traumatic brain injury, vascular, Alzheimer's with delusions. 2. Anxiety disorder, unspecified. PLAN: The patient's medications reviewed. We will decrease the Seroquel to 50 mg b.i.d. and 50 mg at night. LENGTH OF STAY: 4 to 6 days. ОЛЬГА CURTIS MD DR: DOUG/marzena JOB#: [id number] / [id number]
[2019-06-20 05:24] VITALS: BP 129/70
[2019-06-20] MEDS: LEVOTHYROXINE 50 MCG TABLET PO SCH (05:39)
[2019-06-20 06:51] LABS: BASO % 0 % (0-3); EOS # 0.3 x10^3/uL (0.0-0.7); EOS % 5 % (0-3); HEMATOCRIT 41.5 % (39.0-53.0); LYMPH # 1.3 x10^3/uL (1.0-4.8); LYMPH % 21 % (24-48); MEAN CORPUSCULAR HEMOGLOBIN 29 pg (25-35); MEAN CORPUSCULAR HGB CONC 32 g/dL (31-37); MEAN CORPUSCULAR VOLUME 91 fL (79-100); MONO # 0.7 x10^3/uL (0.0-1.1); MONO % 11 % (0-9); NEUT # 3.8 x10^3uL (1.8-7.7); NEUT % 63 % (31-73); PLATELET COUNT 162 x10^3/uL (140-400); RED BLOOD COUNT 4.54 x10^6/uL (4.30-5.70); RED CELL DISTRIBUTION WIDTH 14.7 % (11.5-14.5)
[2019-06-20 07:12] LABS: ALBUMIN 3.2 g/dL (3.4-5.0); ALBUMIN/GLOBULIN RATIO 0.8 (1.0-1.7); CALCIUM 8.5 mg/dL (8.5-10.1); CREATININE 1.3 mg/dL (0.7-1.3); MAGNESIUM 2.4 mg/dL (1.8-2.4); POTASSIUM 4.2 mmol/L (3.5-5.1); TOTAL BILIRUBIN 0.3 mg/dL (0.2-1.0); TOTAL PROTEIN 7.1 g/dL (6.4-8.2)
[2019-06-20] MEDS: CETIRIZINE HCL 10 MG TABLET PO SCH (08:51)
[2019-06-20] MEDS: LACTOBACILLUS RHAMNOSUS GG 1 CAPSULE. PO SCH ×2 (08:52→19:58)
[2019-06-20] MEDS: buPROPion 100 MG TABLET PO SCH ×3 (08:52→19:57)
[2019-06-20] MEDS: LIDOCAINE (700MG/PATCH) PATCH. TD SCH (08:52)
[2019-06-20] MEDS: QUEtiapine 50 MG TABLET. PO SCH ×3 (08:52→19:58)
[2019-06-20] MEDS: NAPROXEN 250 MG TABLET PO SCH (08:52)
[2019-06-20] MEDS: HYDROCORTISONE 1% TOPICAL OINTMENT 30GM TUBE. TP SCH ×2 (08:53→19:58)
[2019-06-20] MEDS: MINERAL OIL/PETROLATUM TOPICAL CREAM 113GM JAR. TP SCH ×2 (08:53→19:58)
--- NOTE | 2019-06-20 10:38 | NUR ---
Patient in dining room for medication administration. Initially resistive with medications, after he drank some water he was willing to take his medications whole. Patient is in wheelchair and is able to ambulate in chair. He is oriented to self and is slow to answer questions. He is calm and usually cooperative.
[2019-06-20 15:56] VITALS: BP 123/77
--- NOTE | 2019-06-20 18:24 | NUR ---
At 1750 patient was standing at the window by the [facility] [employer] [facility] looking outside at the [place]. He appeared to lose his balance and fell onto his right side. Patient did not hit his head. During the fall he obtained a skin tear to right elbow. Wound was cleaned, petrolatum Xeroform gauze was applied covered by a Aquacel. Wound was photographed. Family was notified and Dr. Soria was paged. No new orders obtained at this time.
[2019-06-20] MEDS: ATORVASTATIN CALCIUM 20 MG TABLET PO SCH (19:57)
[2019-06-20] MEDS: DIVALPROEX ER 500 MG TAB.ER.24H PO SCH (19:58)
[2019-06-20] MEDS: LORazepam 1 MG TABLET PO PRN (19:58)
[2019-06-20] MEDS: PATCH REMOVAL. MC SCH (20:21)
--- NOTE | 2019-06-20 20:25 | NUR ---
Pt sitting in the day room at shift change. Pt irritable, agitated and combative with re-direction. Pt delusional- accusing staff of "taking those things off the hat". This nurse attempted to administer pt medications whole, however, he chewed several of them up and then started spitting them out. Therefore, scheduled Wellbutrin and Seroquel as well as PRN Ativan were administered via oral syringe. Pt uncooperative with assessment. Pt currently sitting at table in the day room, banging his fist repetitively on the table.
--- NOTE | 2019-06-20 22:04 | PDOC ---
Exam Note: Yves Note: Please also refer to the separate dictated note~for this date of service dictated separately.~Patient seen individually. Discussed the patient with Nursing staff reviewed the chart.~Reviewed interim history and current functioning. Reviewed vital signs,~Labs/ Radiology~and current medications noted below. Continue current treatment with the changes noted in the dictated addendum note Assessment: Vital Signs/I&O: Vital Signs Date Time Temp Pulse Resp B/P (MAP) Pulse Ox O2 Delivery O2 Flow Rate FiO2 06/20/19 15:56 98.3 84 16 123/77 (92) 93 06/20/19 05:24 Room Air I & O 06/19/19 06/19/19 06/20/19 15:00 23:00 07:00 Intake Total 560 ml 200 ml Balance 560 ml 200 ml Labs: Laboratory Tests Test 06/20/19 06:34 White Blood Count 6.0 x10^3/uL (4.0-11.0) Red Blood Count 4.54 x10^6/uL (4.30-5.70) Hemoglobin 13.0 g/dL (13.0-17.5) Hematocrit 41.5 % (39.0-53.0) Mean Corpuscular Volume 91 fL (79-100) Mean Corpuscular Hemoglobin 29 pg (25-35) Mean Corpuscular Hemoglobin Concent 32 g/dL (31-37) Red Cell Distribution Width 14.7 % (11.5-14.5) H Platelet Count 162 x10^3/uL (140-400) Neutrophils (%) (Auto) 63 % (31-73) Lymphocytes (%) (Auto) 21 % (24-48) L Monocytes (%) (Auto) 11 % (0-9) H Eosinophils (%) (Auto) 5 % (0-3) H Basophils (%) (Auto) 0 % (0-3) Neutrophils # (Auto) 3.8 x10^3uL (1.8-7.7) Lymphocytes # (Auto) 1.3 x10^3/uL (1.0-4.8) Monocytes # (Auto) 0.7 x10^3/uL (0.0-1.1) Eosinophils # (Auto) 0.3 x10^3/uL (0.0-0.7) Basophils # (Auto) 0.0 x10^3/uL (0.0-0.2) Sodium Level 143 mmol/L (136-145) Potassium Level 4.2 mmol/L (3.5-5.1) Chloride Level 106 mmol/L (98-107) Carbon Dioxide Level 32 mmol/L (21-32) Anion Gap 5 (6-14) L Blood Urea Nitrogen 34 mg/dL (8-26) H Creatinine 1.3 mg/dL (0.7-1.3) Estimated GFR (Cockcroft-Gault) 53.0 BUN/Creatinine Ratio 26 (6-20) H Glucose Level 99 mg/dL (70-99) Calcium Level 8.5 mg/dL (8.5-10.1) Magnesium Level 2.4 mg/dL (1.8-2.4) Total Bilirubin 0.3 mg/dL (0.2-1.0) Aspartate Amino Transferase (AST) 23 U/L (15-37) Alanine Aminotransferase (ALT) 34 U/L (16-63) Alkaline Phosphatase 90 U/L (46-116) Total Protein 7.1 g/dL (6.4-8.2) Albumin 3.2 g/dL (3.4-5.0) L Albumin/Globulin Ratio 0.8 (1.0-1.7) L Current Medications: Meds: Current Medications Medications (Trade) Dose Ordered Sig/Delfino Route PRN Reason Start Time Stop Time Status Last Admin Dose Admin Quetiapine Fumarate (SEROquel) 50 mg 0900,1700 PO 06/20/19 09:00 06/20/19 17:10 I have reviewed the current psychotropics carefully including drug interactions. Risk benefit ratio favors no change other than as noted in my dictated progress note. Diagnosis: Problems: (1) Major neurocognitive disorder due to traumatic brain injury (2) Anxiety disorder (3) Dementia, vascular, with delusions (4) Dementia, vascular, with depression (5) Dementia in Alzheimer's disease with delusions (6) Dementia in Alzheimer's disease with depression (7) Impulse control disorder MANISH AVLARES MD Jun 20, 2019 22:03
[2019-06-21] MEDS: LEVOTHYROXINE 50 MCG TABLET PO SCH (05:12)
[2019-06-21 05:22] VITALS: BP 144/82
--- NOTE | 2019-06-21 05:43 | NUR ---
Pt resistive this morning. Scheduled dose of Synthroid not administered d/t pt spitting medication out when given this morning.
[2019-06-21] MEDS ORDERED: CYAN10002 IM (07:38)
[2019-06-21] MEDS ORDERED: CHOL500050 PO (07:39)
[2019-06-21] MEDS: MINERAL OIL/PETROLATUM TOPICAL CREAM 113GM JAR. TP SCH ×2 (08:11→19:45)
[2019-06-21] MEDS: CYANOCOBALAMIN (VITAMIN B-12) 1,000 MCG/ML VIAL IM SCH (08:12)
[2019-06-21] MEDS: HYDROCORTISONE 1% TOPICAL OINTMENT 30GM TUBE. TP SCH ×2 (08:12→20:07)
[2019-06-21] MEDS: buPROPion 100 MG TABLET PO SCH ×2 (08:13→15:15)
[2019-06-21] MEDS: LACTOBACILLUS RHAMNOSUS GG 1 CAPSULE. PO SCH ×2 (08:13→19:46)
[2019-06-21] MEDS: CETIRIZINE HCL 10 MG TABLET PO SCH (08:13)
[2019-06-21] MEDS: LIDOCAINE (700MG/PATCH) PATCH. TD SCH (08:14)
[2019-06-21] MEDS: CHOLECALCIFEROL (VITAMIN D3) 50,000 UNIT CAPSULE PO SCH (08:14)
[2019-06-21] MEDS: NAPROXEN 250 MG TABLET PO SCH (08:14)
[2019-06-21] MEDS: QUEtiapine 50 MG TABLET. PO SCH ×3 (08:14→19:46)
--- NOTE | 2019-06-21 09:26 | NUR ---
After breakfast patient was in hallway on his way to the day room propelling himself in his wheelchair. Patient stood up without assistance. Patients chair alarm sounded and staff was able to help him back into chair. Patient has very unsteady gait and needs x2 assistance to ambulate safely.
[2019-06-21 16:28] VITALS: BP 143/74
[2019-06-21] MEDS: PATCH REMOVAL. MC SCH (19:42)
[2019-06-21] MEDS: hydrOXYzine HCL 25 MG TABLET PO PRN (19:46)
[2019-06-21] MEDS: CLINDAMYCIN HCL 150 MG CAPSULE PO SCH (19:46)
[2019-06-21] MEDS: ATORVASTATIN CALCIUM 20 MG TABLET PO SCH (19:46)
[2019-06-21] MEDS: DIVALPROEX ER 500 MG TAB.ER.24H PO SCH (19:46)
--- NOTE | 2019-06-21 20:05 | NUR ---
Patients right great toe has discharge coming from under the toenail. New wound care instructions from CLEMENTE Bolandurgent care physician: [place] flex dressing is to be applied every other day (it will need to be changed 06/23) or sooner if patient showers. Dr. Soria examined and evaluated the toe on rounds. He prescribed Clindamycin TID as oral antibiotic for toe infection.
[2019-06-21] MEDS: LORazepam 1 MG TABLET PO PRN (20:27)
--- NOTE | 2019-06-21 22:17 | NUR ---
Nursing Note The patient was located in the day room for his assessment and medication. The patient was very agitated and combative with staff. The patient became combative when staff attempted to provide any care. The patient was continually attempting to get up without assistance while in the day room . The patient received PRN Ativan and Atarax @HS R/T behaviors and itching. The patient is currently sitting in the day room.
--- NOTE | 2019-06-21 22:23 | PN ---
DATE: 06/20/2019 PSYCHIATRIC PROGRESS NOTE This late entry 06/20/2019 covers elements not covered in my initial note. SUBJECTIVE: I met with the patient evening of 06/20/2019. Reviewed information from Dr. Murrieta, who had covered for me for over the past week or so. Per CLEMENTE Lorenzana, the patient slept 5-1/4 hours previous night. Compliant with medications whole, drowsy during the day. Ambulates, up ad kathy. REVIEW OF SYSTEMS: No CV, , pulmonary, eye system symptoms on review. MENTAL STATUS EXAM: Oriented to himself. Insight, judgment, recent and remote memory, attention, concentration, fund of knowledge poor, consistent with his diagnosis. When I met with him, he was in a wheelchair. LABORATORY DATA: Reviewed. IMPRESSION: Unchanged from initial note. PLAN: No change from initial note. MAN Rosanne ALVARES MD DR: COLLINS/marzena JOB#: [id number] / [id number]
--- NOTE | 2019-06-21 23:29 | PDOC ---
Exam Note: Yves Note: Please also refer to the separate dictated note~for this date of service dictated separately.~Patient seen individually. Discussed the patient with Nursing staff reviewed the chart.~Reviewed interim history and current functioning. Reviewed vital signs,~Labs/ Radiology~and current medications noted below. Continue current treatment with the changes noted in the dictated addendum note Assessment: Vital Signs/I&O: Vital Signs Date Time Temp Pulse Resp B/P (MAP) Pulse Ox O2 Delivery O2 Flow Rate FiO2 06/21/19 16:28 97.2 81 16 143/74 (97) 93 06/21/19 05:22 Room Air I & O 06/20/19 06/20/19 06/21/19 15:00 23:00 07:00 Intake Total 840 ml 260 ml Balance 840 ml 260 ml Current Medications: Meds: Current Medications Medications (Trade) Dose Ordered Sig/Delfino Route PRN Reason Start Time Stop Time Status Last Admin Dose Admin Clindamycin HCl (Cleocin) 300 mg QID PO 06/21/19 21:00 07/01/19 10:00 06/21/19 19:46 I have reviewed the current psychotropics carefully including drug interactions. Risk benefit ratio favors no change other than as noted in my dictated progress note. Diagnosis: Problems: (1) Major neurocognitive disorder due to traumatic brain injury (2) Anxiety disorder (3) Dementia, vascular, with delusions (4) Dementia, vascular, with depression (5) Dementia in Alzheimer's disease with delusions (6) Dementia in Alzheimer's disease with depression (7) Impulse control disorder MANISH ALVARES MD Jun 21, 2019 23:29
[2019-06-22] MEDS: LEVOTHYROXINE 50 MCG TABLET PO SCH (05:18)
[2019-06-22 06:27] VITALS: BP 131/81
[2019-06-22] MEDS ORDERED: SERTRALINE 25 MG TABLET. PO SCH (09:00)
[2019-06-22] MEDS: HYDROCORTISONE 1% TOPICAL OINTMENT 30GM TUBE. TP SCH ×2 (09:43→20:25)
[2019-06-22] MEDS: LACTOBACILLUS RHAMNOSUS GG 1 CAPSULE. PO SCH ×2 (09:43→20:25)
[2019-06-22] MEDS: MINERAL OIL/PETROLATUM TOPICAL CREAM 113GM JAR. TP SCH ×2 (09:43→20:24)
[2019-06-22] MEDS: CETIRIZINE HCL 10 MG TABLET PO SCH (09:43)
[2019-06-22] MEDS: QUEtiapine 50 MG TABLET. PO SCH ×3 (09:44→20:24)
[2019-06-22] MEDS: NAPROXEN 250 MG TABLET PO SCH (09:44)
[2019-06-22] MEDS: CLINDAMYCIN HCL 150 MG CAPSULE PO SCH ×4 (09:44→20:25)
[2019-06-22] MEDS: LIDOCAINE (700MG/PATCH) PATCH. TD SCH (09:46)
--- NOTE | 2019-06-22 14:32 | NUR ---
Nursing Note Patient in the day room, calm, initially resistive with medications eventually compliant with lot of encouragement. Patient is oriented to self, irritable and slow to answer assessment questions. No agitation and aggression at this time. Will continue to monitor.
[2019-06-22 16:17] VITALS: BP 155/81
[2019-06-22] MEDS: LORazepam 1 MG TABLET PO PRN (17:10)
--- NOTE | 2019-06-22 17:37 | NUR ---
Patient continues to be LOS due to recent fall. He attempted to get up in his wheelchair without assistance, when redirected and was told to sit down, he became combative, and attempted to kick the person next to him. PRN given per eMar. Will continue to monitor.
[2019-06-22] MEDS: hydrOXYzine HCL 25 MG TABLET PO PRN (18:53)
[2019-06-22] MEDS: MIRTAZAPINE 7.5 MG TABLET. PO SCH (20:24)
[2019-06-22] MEDS: DIVALPROEX ER 500 MG TAB.ER.24H PO SCH (20:25)
[2019-06-22] MEDS: ATORVASTATIN CALCIUM 20 MG TABLET PO SCH (20:25)
[2019-06-22] MEDS: PATCH REMOVAL. MC SCH (20:26)
--- NOTE | 2019-06-22 20:45 | PDOC ---
Exam Note: Yves Note: Please also refer to the separate dictated note~for this date of service dictated separately.~Patient seen individually. Discussed the patient with Nursing staff reviewed the chart.~Reviewed interim history and current functioning. Reviewed vital signs,~Labs/ Radiology~and current medications noted below. Continue current treatment with the changes noted in the dictated addendum note Assessment: Vital Signs/I&O: Vital Signs Date Time Temp Pulse Resp B/P (MAP) Pulse Ox O2 Delivery O2 Flow Rate FiO2 06/22/19 16:17 97.6 96 19 155/81 (105) 94 06/21/19 05:22 Room Air I & O 06/21/19 06/21/19 06/22/19 15:00 23:00 07:00 Intake Total 680 ml 240 ml Balance 680 ml 240 ml Current Medications: Meds: Current Medications Medications (Trade) Dose Ordered Sig/Delfino Route PRN Reason Start Time Stop Time Status Last Admin Dose Admin Clindamycin HCl (Cleocin) 300 mg QID PO 06/21/19 21:00 07/01/19 10:00 06/22/19 20:25 Sertraline HCl (Zoloft) 25 mg DAILY PO 06/22/19 09:00 06/22/19 19:33 DC 06/22/19 09:44 Mirtazapine (Remeron) 7.5 mg QHS PO 06/22/19 21:00 06/22/19 20:24 I have reviewed the current psychotropics carefully including drug interactions. Risk benefit ratio favors no change other than as noted in my dictated progress note. Diagnosis: Problems: (1) Major neurocognitive disorder due to traumatic brain injury (2) Anxiety disorder (3) Dementia, vascular, with delusions (4) Dementia, vascular, with depression (5) Dementia in Alzheimer's disease with delusions (6) Dementia in Alzheimer's disease with depression (7) Impulse control disorder MANISH ALVARES MD Jun 22, 2019 20:45
--- NOTE | 2019-06-23 01:12 | NUR ---
Last evening pt was in day room meds were taken whole without difficulty. Pt remained LOS and would frequently try to stand un aided and was unsteady on feet. No aggressive behaviors so far on this shift.
[2019-06-23] MEDS: hydrOXYzine HCL 25 MG TABLET PO PRN (02:30)
[2019-06-23] MEDS: LEVOTHYROXINE 50 MCG TABLET PO SCH (02:30)
[2019-06-23] MEDS: MAGNESIUM HYDROXIDE 2,400 MG/30 ML ORAL.SUSP. PO PRN (02:30)
--- NOTE | 2019-06-23 02:30 | NUR ---
Pt awake in bed scratching at rash on abdomen. PRN atarax given, also no BM documented in several days MOM given.
[2019-06-23 05:01] VITALS: BP 137/77
[2019-06-23] MEDS: QUEtiapine 50 MG TABLET. PO SCH ×3 (08:41→20:22)
[2019-06-23] MEDS: NAPROXEN 250 MG TABLET PO SCH (08:41)
[2019-06-23] MEDS: CLINDAMYCIN HCL 150 MG CAPSULE PO SCH ×4 (08:41→20:23)
[2019-06-23] MEDS: LACTOBACILLUS RHAMNOSUS GG 1 CAPSULE. PO SCH ×2 (08:41→20:22)
[2019-06-23] MEDS: CETIRIZINE HCL 10 MG TABLET PO SCH (08:41)
[2019-06-23] MEDS: LIDOCAINE (700MG/PATCH) PATCH. TD SCH (08:42)
[2019-06-23] MEDS: HYDROCORTISONE 1% TOPICAL OINTMENT 30GM TUBE. TP SCH ×2 (08:43→20:21)
[2019-06-23] MEDS: MINERAL OIL/PETROLATUM TOPICAL CREAM 113GM JAR. TP SCH ×2 (08:43→20:21)
[2019-06-23] MEDS: SERTRALINE 25 MG TABLET. PO SCH (08:49)
--- NOTE | 2019-06-23 11:46 | NUR ---
WEEKLY ACTIVITY THERAPY NOTE Date of Admission: 06/05/2019 Date of AT Assessment: 06/08/2019 Goal aimed: to increase engagement Initial goal: Pt. will participate in three Activity Therapy groups or individual sessions before discharge. Weekly progress towards goal: 08/07 (06/12-Guess the Gift, 06/19-- What's in the box) Group participation level: moderate in one group Weekly highlights: kicking ball and attempted to make guesses at mystery items in box on Wednesday morning- bouncing tennis ball independently a few times Behaviors observed: often sleeping but when awake, often restless and attempting to get out of wheelchair, working with Physical Therapy Plan: no change to goal Beneficial adaptations: direct prompting
--- NOTE | 2019-06-23 12:05 | NUR ---
Patient was in the dining room during morning rounding, took medications whole, allowed for morning assessment. Patient is having some low back pain, pain patch was applied. Patient has been pleasant and cooperative. Patient did try to stand once while at breakfast and staff assisted pt back to wheelchair. Will continue to monitor.
--- NOTE | 2019-06-23 13:20 | NUR ---
TIAN spoke to Candie [facility], regarding pt. progress and discharge scheduled for the end of next week. Candie did share she would be off several days next week and to ask to speak to the nurse on duty. TIAN will fax updated notes on and plan for discharge on 06/30/2019. Pt. , Brie, was contacted for treatment team.
[2019-06-23 13:54] LABS: BILIRUBIN,URINE NEG (NEG); CLARITY,URINE CLEAR; COLOR,URINE YELLOW; GLUCOSE,URINE NEG (NEG)
[2019-06-23 13:55] LABS: AMORPHOUS SEDIMENT,UR PRESENT /HPF; BACTERIA,URINE 0 /HPF (0-FEW); HYALINE CASTS, URINE FEW /HPF; NITRITE,URINE NEG (NEG); RBC,URINE OCC /HPF (0-2); SQUAMOUS EPITHELIAL CELL,UR FEW /LPF; UROBILINOGEN,URINE 0.2 mg/dL (0.2 mg/dL)
[2019-06-23 16:13] VITALS: BP 154/80
[2019-06-23] MEDS: PATCH REMOVAL. MC SCH (20:18)
[2019-06-23] MEDS: ATORVASTATIN CALCIUM 20 MG TABLET PO SCH (20:22)
[2019-06-23] MEDS: MIRTAZAPINE 7.5 MG TABLET. PO SCH (20:23)
[2019-06-23] MEDS: DIVALPROEX ER 500 MG TAB.ER.24H PO SCH (20:23)
--- NOTE | 2019-06-23 21:35 | PDOC ---
Exam Note: Yves Note: Please also refer to the separate dictated note~for this date of service dictated separately.~Patient seen individually. Discussed the patient with Nursing staff reviewed the chart.~Reviewed interim history and current functioning. Reviewed vital signs,~Labs/ Radiology~and current medications noted below. Continue current treatment with the changes noted in the dictated addendum note Assessment: Vital Signs/I&O: Vital Signs Date Time Temp Pulse Resp B/P (MAP) Pulse Ox O2 Delivery O2 Flow Rate FiO2 06/23/19 16:13 97.9 80 18 154/80 (104) 93 Room Air I & O 06/22/19 06/22/19 06/23/19 15:00 23:00 07:00 Intake Total 480 ml 240 ml Balance 480 ml 240 ml Labs: Laboratory Tests Test 06/23/19 13:38 Urine Collection Type Unknown Urine Color Yellow Urine Clarity Clear Urine pH 6.5 Urine Specific [place] >=1.030 Urine Protein Neg (NEG-TRACE) Urine Glucose (UA) Neg mg/dL (NEG) Urine Ketones (Stick) Trace mg/dL (NEG) Urine Blood Neg (NEG) Urine Nitrite Neg (NEG) Urine Bilirubin Neg (NEG) Urine Urobilinogen Dipstick 0.2 mg/dL (0.2 mg/dL) Urine Leukocyte Esterase Neg (NEG) Urine RBC Occ /HPF (0-2) Urine WBC 1-4 /HPF (0-4) Urine Squamous Epithelial Cells Few /LPF Urine Amorphous Sediment Present /HPF Urine Bacteria 0 /HPF (0-FEW) Urine Hyaline Casts Few /HPF Urine Mucus Slight /LPF Current Medications: Meds: Current Medications Medications (Trade) Dose Ordered Sig/Delfino Route PRN Reason Start Time Stop Time Status Last Admin Dose Admin Sertraline HCl (Zoloft) 25 mg DAILY PO 06/23/19 09:00 06/25/19 09:01 06/23/19 08:49 I have reviewed the current psychotropics carefully including drug interactions. Risk benefit ratio favors no change other than as noted in my dictated progress note. 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
--- NOTE | 2019-06-23 23:02 | PN ---
DATE: 06/22/2019 This late entry 06/22/2019 covers elements not covered in my initial note. SUBJECTIVE: I met with the patient in the evening. The patient slept 4-1/2 hours previous night, resistive to medications assessment, withdrawn, drowsy at times, kicking, biting at times. Received p.r.n. REVIEW OF SYSTEMS: Ambulation impaired, in wheelchair. No CV, , pulmonary, eye, ENT system symptoms on review. Reliability poor. MENTAL STATUS EXAM: Oriented to himself. Insight, judgment, recent and remote memory, attention, concentration, fund of knowledge poor, consistent with his diagnosis mentioned in my initial note. PLAN: Increase Zoloft to 50 mg a day after he has been on 25 for 3 days. Start Remeron 7.5 mg at bedtime for insomnia and anxiety. Rest unchanged for now. MAN Rosanne ALVARES MD DR: COLLINS/marzena JOB#: [id number] / [id number]
--- NOTE | 2019-06-23 23:10 | PN ---
DATE: 06/21/2019 This late entry date of service 06/21/2019 covers elements not covered in my initial note. SUBJECTIVE: I met with the patient in the evening. Per CLEMENTE Lorenzana, the patient slept 6-3/4 hours previous night. He was agitated previous night, combative, spitting his medications out and in the morning, was delusional, taking things around him. Compliant with meds on 06/21/2019. Attending physical therapy. REVIEW OF SYSTEMS: No CV, , pulmonary, eyes, ENT system symptoms on review. Reliability poor. MENTAL STATUS EXAM: Oriented to himself. Insight, judgment, recent and remote memory, attention, concentration, fund of knowledge poor, consistent with his diagnosis mentioned in my initial note. PLAN: No change from initial note. Change Wellbutrin 25 mg t.i.d. to Zoloft 25 mg a day, we will increase gradually. Rest unchanged. MAN Rosanne ALVARES MD DR: COLLINS/marzena JOB#: [id number] / [id number]
[2019-06-24] MEDS: hydrOXYzine HCL 25 MG TABLET PO PRN (00:02)
--- NOTE | 2019-06-24 01:18 | NUR ---
Last evening pt was in day room in he took meds whole without difficulty. He was calm and cooperative with no aggression. After going to bed he was having itching of skin PRN med given.
[2019-06-24] MEDS: LORazepam 1 MG TABLET PO PRN (01:43)
--- NOTE | 2019-06-24 01:44 | NUR ---
Itching and restlessness persists, PRN Ativan given.
[2019-06-24] MEDS: LEVOTHYROXINE 50 MCG TABLET PO SCH (05:38)
[2019-06-24 05:56] VITALS: BP 140/85
[2019-06-24] MEDS: LIDOCAINE (700MG/PATCH) PATCH. TD SCH (09:18)
[2019-06-24] MEDS: NAPROXEN 250 MG TABLET PO SCH (09:18)
[2019-06-24] MEDS: CETIRIZINE HCL 10 MG TABLET PO SCH (09:18)
[2019-06-24] MEDS: SERTRALINE 25 MG TABLET. PO SCH (09:18)
[2019-06-24] MEDS: CLINDAMYCIN HCL 150 MG CAPSULE PO SCH ×4 (09:18→20:09)
[2019-06-24] MEDS: QUEtiapine 50 MG TABLET. PO SCH ×3 (09:18→20:09)
[2019-06-24] MEDS: LACTOBACILLUS RHAMNOSUS GG 1 CAPSULE. PO SCH ×2 (09:18→20:09)
[2019-06-24] MEDS: HYDROCORTISONE 1% TOPICAL OINTMENT 30GM TUBE. TP SCH ×2 (09:18→20:11)
[2019-06-24] MEDS: MINERAL OIL/PETROLATUM TOPICAL CREAM 113GM JAR. TP SCH ×2 (09:18→20:10)
--- NOTE | 2019-06-24 11:34 | NUR ---
Pt is calm, cooperative, compliant and slow. He is compliant with his medications and assessment. No agitation, no aggression, no hallucinations or delusions.
[2019-06-24 16:11] VITALS: BP 146/74
[2019-06-24] MEDS: ATORVASTATIN CALCIUM 20 MG TABLET PO SCH (20:09)
[2019-06-24] MEDS: MIRTAZAPINE 7.5 MG TABLET. PO SCH (20:09)
[2019-06-24] MEDS: DIVALPROEX ER 500 MG TAB.ER.24H PO SCH (20:10)
[2019-06-24] MEDS: PATCH REMOVAL. MC SCH (21:00)
--- NOTE | 2019-06-24 21:32 | PDOC ---
Exam Note: Yves Note: Please also refer to the separate dictated note~for this date of service dictated separately.~Patient seen individually. Discussed the patient with Nursing staff reviewed the chart.~Reviewed interim history and current functioning. Reviewed vital signs,~Labs/ Radiology~and current medications noted below. Continue current treatment with the changes noted in the dictated addendum note Assessment: Vital Signs/I&O: Vital Signs Date Time Temp Pulse Resp B/P (MAP) Pulse Ox O2 Delivery O2 Flow Rate FiO2 06/24/19 16:11 97.5 90 16 146/74 (98) 90 06/24/19 05:56 Room Air I & O 06/23/19 06/23/19 06/24/19 15:00 23:00 07:00 Intake Total 600 ml 600 ml Balance 600 ml 600 ml Current Medications: I have reviewed the current psychotropics carefully including drug interactions. Risk benefit ratio favors no change other than as noted in my dictated progress note. Diagnosis: Problems: (1) Major neurocognitive disorder due to traumatic brain injury (2) Anxiety disorder (3) Dementia, vascular, with delusions (4) Dementia, vascular, with depression (5) Dementia in Alzheimer's disease with delusions (6) Dementia in Alzheimer's disease with depression (7) Impulse control disorder MANISH ALVARES MD Jun 24, 2019 21:32
--- NOTE | 2019-06-24 23:18 | NUR ---
Nursing Note Pt much more pleasant and cooperative this PM. Attempting to get up out of his chair but easily redirected.
[2019-06-25] MEDS: LORazepam 1 MG TABLET PO PRN (03:30)
[2019-06-25] MEDS: LEVOTHYROXINE 50 MCG TABLET PO SCH (03:30)
[2019-06-25 05:36] VITALS: BP 145/79
[2019-06-25 07:13] LABS: BASO % 1 % (0-3); EOS # 0.3 x10^3/uL (0.0-0.7); EOS % 5 % (0-3); HEMOGLOBIN 12.8 g/dL (13.0-17.5); LYMPH # 1.2 x10^3/uL (1.0-4.8); LYMPH % 22 % (24-48); MEAN CORPUSCULAR HEMOGLOBIN 29 pg (25-35); MEAN CORPUSCULAR HGB CONC 32 g/dL (31-37); MEAN CORPUSCULAR VOLUME 90 fL (79-100); MONO # 0.6 x10^3/uL (0.0-1.1); MONO % 10 % (0-9); NEUT # 3.5 x10^3uL (1.8-7.7); NEUT % 62 % (31-73); PLATELET COUNT 190 x10^3/uL (140-400); RED BLOOD COUNT 4.47 x10^6/uL (4.30-5.70); RED CELL DISTRIBUTION WIDTH 15.1 % (11.5-14.5); WHITE BLOOD COUNT 5.6 x10^3/uL (4.0-11.0)
[2019-06-25 07:14] LABS: ALBUMIN/GLOBULIN RATIO 0.8 (1.0-1.7); CALCIUM 8.4 mg/dL (8.5-10.1); CREATININE 1.2 mg/dL (0.7-1.3); GFR 58.1; POTASSIUM 4.2 mmol/L (3.5-5.1); TOTAL BILIRUBIN 0.3 mg/dL (0.2-1.0)
[2019-06-25] MEDS: QUEtiapine 50 MG TABLET. PO SCH ×3 (08:13→20:24)
[2019-06-25] MEDS: CLINDAMYCIN HCL 150 MG CAPSULE PO SCH ×4 (08:13→20:23)
[2019-06-25] MEDS: CETIRIZINE HCL 10 MG TABLET PO SCH (08:13)
[2019-06-25] MEDS: NAPROXEN 250 MG TABLET PO SCH (08:13)
[2019-06-25] MEDS: LACTOBACILLUS RHAMNOSUS GG 1 CAPSULE. PO SCH ×2 (08:13→20:23)
[2019-06-25] MEDS: SERTRALINE 25 MG TABLET. PO SCH (08:13)
[2019-06-25] MEDS: LIDOCAINE (700MG/PATCH) PATCH. TD SCH (08:13)
[2019-06-25] MEDS: MINERAL OIL/PETROLATUM TOPICAL CREAM 113GM JAR. TP SCH ×2 (09:00→20:24)
[2019-06-25] MEDS: HYDROCORTISONE 1% TOPICAL OINTMENT 30GM TUBE. TP SCH ×2 (09:00→20:24)
--- NOTE | 2019-06-25 10:21 | NUR ---
No agitation, no aggression, no hallucinations or delusions. Pt is calm, cooperative, compliant and slow. He is compliant with his medications and assessment.
[2019-06-25 15:37] VITALS: BP 126/81
[2019-06-25] MEDS: MIRTAZAPINE 7.5 MG TABLET. PO SCH (20:23)
[2019-06-25] MEDS: DIVALPROEX ER 500 MG TAB.ER.24H PO SCH (20:23)
[2019-06-25] MEDS: ATORVASTATIN CALCIUM 20 MG TABLET PO SCH (20:23)
[2019-06-25] MEDS: PATCH REMOVAL. MC SCH (20:24)
--- NOTE | 2019-06-25 21:07 | PDOC ---
Exam Note: Yves Note: Please also refer to the separate dictated note~for this date of service dictated separately.~Patient seen individually. Discussed the patient with Nursing staff reviewed the chart.~Reviewed interim history and current functioning. Reviewed vital signs,~Labs/ Radiology~and current medications noted below. Continue current treatment with the changes noted in the dictated addendum note Assessment: Vital Signs/I&O: Vital Signs Date Time Temp Pulse Resp B/P (MAP) Pulse Ox O2 Delivery O2 Flow Rate FiO2 06/25/19 15:37 97.1 78 15 126/81 (96) 94 06/24/19 05:56 Room Air I & O 06/24/19 06/24/19 06/25/19 15:00 23:00 07:00 Intake Total 480 ml 240 ml 360 ml Balance 480 ml 240 ml 360 ml Labs: Laboratory Tests Test 06/25/19 06:49 White Blood Count 5.6 x10^3/uL (4.0-11.0) Red Blood Count 4.47 x10^6/uL (4.30-5.70) Hemoglobin 12.8 g/dL (13.0-17.5) L Hematocrit 40.0 % (39.0-53.0) Mean Corpuscular Volume 90 fL (79-100) Mean Corpuscular Hemoglobin 29 pg (25-35) Mean Corpuscular Hemoglobin Concent 32 g/dL (31-37) Red Cell Distribution Width 15.1 % (11.5-14.5) H Platelet Count 190 x10^3/uL (140-400) Neutrophils (%) (Auto) 62 % (31-73) Lymphocytes (%) (Auto) 22 % (24-48) L Monocytes (%) (Auto) 10 % (0-9) H Eosinophils (%) (Auto) 5 % (0-3) H Basophils (%) (Auto) 1 % (0-3) Neutrophils # (Auto) 3.5 x10^3uL (1.8-7.7) Lymphocytes # (Auto) 1.2 x10^3/uL (1.0-4.8) Monocytes # (Auto) 0.6 x10^3/uL (0.0-1.1) Eosinophils # (Auto) 0.3 x10^3/uL (0.0-0.7) Basophils # (Auto) 0.0 x10^3/uL (0.0-0.2) Sodium Level 143 mmol/L (136-145) Potassium Level 4.2 mmol/L (3.5-5.1) Chloride Level 107 mmol/L (98-107) Carbon Dioxide Level 31 mmol/L (21-32) Anion Gap 5 (6-14) L Blood Urea Nitrogen 26 mg/dL (8-26) Creatinine 1.2 mg/dL (0.7-1.3) Estimated GFR (Cockcroft-Gault) 58.1 BUN/Creatinine Ratio 22 (6-20) H Glucose Level 98 mg/dL (70-99) Calcium Level 8.4 mg/dL (8.5-10.1) L Total Bilirubin 0.3 mg/dL (0.2-1.0) Aspartate Amino Transferase (AST) 16 U/L (15-37) Alanine Aminotransferase (ALT) 30 U/L (16-63) Alkaline Phosphatase 94 U/L (46-116) Total Protein 7.0 g/dL (6.4-8.2) Albumin 3.0 g/dL (3.4-5.0) L Albumin/Globulin Ratio 0.8 (1.0-1.7) L Current Medications: I have reviewed the current psychotropics carefully including drug interactions. Risk benefit ratio favors no change other than as noted in my dictated progress note. 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
--- NOTE | 2019-06-25 21:18 | NUR ---
Nursing Note pt pleasant and cooperative, drowsy in chair this pm. Takes meds whole compliant.
[2019-06-26 05:28] VITALS: BP 122/77
[2019-06-26] MEDS: LORazepam 1 MG TABLET PO PRN ×2 (05:54→21:20)
[2019-06-26] MEDS: LEVOTHYROXINE 50 MCG TABLET PO SCH (05:54)
--- NOTE | 2019-06-26 06:02 | NUR ---
Nursing Note Pt agitated and irritable in day room. Ativan given in a small amount of water. Attempting to get out of chair will not follow commands.
[2019-06-26] MEDS: CLINDAMYCIN HCL 150 MG CAPSULE PO SCH ×4 (09:04→20:21)
[2019-06-26] MEDS: NAPROXEN 250 MG TABLET PO SCH (09:04)
[2019-06-26] MEDS: LIDOCAINE (700MG/PATCH) PATCH. TD SCH (09:04)
[2019-06-26] MEDS: LACTOBACILLUS RHAMNOSUS GG 1 CAPSULE. PO SCH ×2 (09:04→20:22)
[2019-06-26] MEDS: QUEtiapine 50 MG TABLET. PO SCH ×3 (09:04→20:21)
[2019-06-26] MEDS: CETIRIZINE HCL 10 MG TABLET PO SCH (09:04)
[2019-06-26] MEDS: HYDROCORTISONE 1% TOPICAL OINTMENT 30GM TUBE. TP SCH ×2 (09:06→20:23)
[2019-06-26] MEDS: SERTRALINE 50 MG TABLET. PO SCH (09:06)
[2019-06-26] MEDS: MINERAL OIL/PETROLATUM TOPICAL CREAM 113GM JAR. TP SCH ×2 (09:06→20:22)
--- NOTE | 2019-06-26 10:49 | NUR ---
No agitation, no aggression, no hallucinations or delusions. He is compliant with his medications and assessment. Pt is calm, cooperative, compliant and slow.
--- NOTE | 2019-06-26 11:43 | PN ---
DATE: 06/24/2019 PSYCHIATRIC PROGRESS NOTE This late entry 06/24/2019 covers elements not covered in my initial note. SUBJECTIVE: I met with the patient evening of 06/24/2019. The patient slept 3-1/2 hours previous night. He has done reasonably better all day. Behaviorally trying to stand up, but is a fall risk at times, had a good day per nursing report. REVIEW OF SYSTEMS: No CV, , pulmonary, eye, ENT system symptoms on review. Reliability poor. MENTAL STATUS EXAM: Oriented to himself. Insight, judgment, recent and remote memory, attention, concentration, fund of knowledge poor, consistent with his diagnosis mentioned in my initial note. PLAN: No change from initial note. MAN Rosanne ALVARES MD DR: COLLINS/marzena JOB#: [id number] / [id number]
--- NOTE | 2019-06-26 11:51 | PN ---
DATE: 06/23/2019 PSYCHIATRIC PROGRESS NOTE This late entry 06/23/2019 covers elements not covered in my initial note. SUBJECTIVE: I met with the patient evening of 06/23/2019. The patient was also staffed at a treatment team meeting earlier in the day on 06/23/2019. He slept 3-3/4 hours previous night. Appetite 50-75%, remains confused. We will check a UA, make sure he does not have a UTI. The patient's , Brie, attended the conference with the treatment team. We discussed the patient's diagnosis, current psychotropics at length. Apparently, the son had visited the patient earlier and felt he was over sedated and I explained the rationale and adjustments in psychotropics and potential increased sedation for a while before it gets better and the seemed to understand. REVIEW OF SYSTEMS: No CV, , pulmonary, eye, ENT system symptoms on review. Reliability poor. MENTAL STATUS EXAM: Oriented to himself. Insight, judgment, recent and remote memory, attention, concentration, fund of knowledge poor, consistent with his diagnosis mentioned in my initial note. PLAN: No change from initial note. MAN Rosanne ALVARES MD DR: COLLINS/marzena JOB#: [id number] / [id number]
--- NOTE | 2019-06-26 12:00 | NUR ---
SUPPORT MERCHANDISER reported he observed the pt scoot to the end of his WC and lower himself to the floor. Pt had no c/o pain or discomfort, no bruising or swelling. Pt was assisted to his WC and redirected to lunch.
--- NOTE | 2019-06-26 12:08 | NUR ---
[facility] and [facility] scheduled for [facility]/2019. Transport will be here to get pt. between 10:30 and 11:00.
--- NOTE | 2019-06-26 12:34 | NUR ---
TIAN contacted pt. , Brie, to inform her pt. is scheduled to discharge on 06/30/2019 between 10:30 and 11:00.
--- NOTE | 2019-06-26 12:35 | NUR ---
[facility] Social Work Discharge Planning Form Patient Name JOSEPH BOCANEGRA Admit Date: 06/05/2019 DISCHARGE PLAN Discharge Destination: [facility] Care Assessment: NA Level II Assessment: NA Transportation: [facility] to transport pt. on 06/30/2019 between 10:30 and 11:00. Special Instructions/Notes: Please fax discharge paperwork and medication list to [phone]. DISCHARGE TO FACILITY Facility: [facility] Address: [address] [place] [address] [address] [place] [address] Contact Name: Lor Schreiber Plan Nurse PCP: Dr. Emile Kyle [facility]iatrist[facility]
--- NOTE | 2019-06-26 14:20 | PN ---
DATE: 06/25/2019 PSYCHIATRIC PROGRESS NOTE This late entry 06/25/2019 covers the elements not covered in my initial note. SUBJECTIVE: I met with the patient in the evening of 06/25/2019. The patient slept 5-1/2 hours previous night. He remains confused, but not aggressive, somewhat calmer. REVIEW OF SYSTEMS: No CV, , pulmonary, eye, ENT system symptoms on review. Reliability poor. MENTAL STATUS EXAM: Oriented to himself. Insight, judgment, recent and remote memory, attention, concentration, fund of knowledge poor, consistent with his diagnosis mentioned in my initial note. PLAN: No change from initial note. MAN Rosanne ALVARES MD DR: COLLINS/marzena JOB#: [id number] / [id number]
[2019-06-26 16:19] VITALS: BP 98/66
[2019-06-26] MEDS: ATORVASTATIN CALCIUM 20 MG TABLET PO SCH (20:21)
[2019-06-26] MEDS: DIVALPROEX ER 500 MG TAB.ER.24H PO SCH (20:22)
[2019-06-26] MEDS: MIRTAZAPINE 15 MG TABLET PO SCH (20:24)
[2019-06-26] MEDS: PATCH REMOVAL. MC SCH (21:00)
[2019-06-26] MEDS: DIVALPROEX 125 MG CAP.SPRINK PO SCH (21:20)
--- NOTE | 2019-06-26 21:30 | PDOC ---
Exam Note: Yves Note: Please also refer to the separate dictated note~for this date of service dictated separately.~Patient seen individually. Discussed the patient with Nursing staff reviewed the chart.~Reviewed interim history and current functioning. Reviewed vital signs,~Labs/ Radiology~and current medications noted below. Continue current treatment with the changes noted in the dictated addendum note Assessment: Vital Signs/I&O: Vital Signs Date Time Temp Pulse Resp B/P (MAP) Pulse Ox O2 Delivery O2 Flow Rate FiO2 06/26/19 16:19 97.4 82 16 98/66 (77) 93 06/24/19 05:56 Room Air I & O 06/25/19 06/25/19 06/26/19 15:00 23:00 07:00 Intake Total 720 ml 360 ml Balance 720 ml 360 ml Current Medications: Meds: Current Medications Medications (Trade) Dose Ordered Sig/Delfino Route PRN Reason Start Time Stop Time Status Last Admin Dose Admin Sertraline HCl (Zoloft) 50 mg DAILY PO 06/26/19 09:00 06/26/19 09:06 Mirtazapine (Remeron) 15 mg QHS PO 06/26/19 21:00 06/26/19 20:24 Divalproex Sodium (Depakote Sprinkles) 500 mg BID PO 06/26/19 21:00 06/26/19 21:20 I have reviewed the current psychotropics carefully including drug interactions. Risk benefit ratio favors no change other than as noted in my dictated progress note. 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
--- NOTE | 2019-06-27 00:35 | NUR ---
Nursing Note Pt up in chair in day room is restless trying to get out of chairs, leans to 2 side over the arm rest. Med compliant cooperative with assessment.
--- NOTE | 2019-06-27 00:37 | NUR ---
Nursing Note Pt given ativan with HS meds crushed in Ice cream, was unable to follow many commands.
[2019-06-27] MEDS: LEVOTHYROXINE 50 MCG TABLET PO SCH (05:00)
[2019-06-27 05:32] VITALS: BP 137/75
[2019-06-27] MEDS: QUEtiapine 50 MG TABLET. PO SCH ×3 (07:57→21:22)
[2019-06-27] MEDS: DIVALPROEX 125 MG CAP.SPRINK PO SCH ×2 (07:57→21:22)
[2019-06-27] MEDS: CLINDAMYCIN HCL 150 MG CAPSULE PO SCH ×4 (07:57→21:22)
[2019-06-27] MEDS: LACTOBACILLUS RHAMNOSUS GG 1 CAPSULE. PO SCH ×2 (07:57→21:22)
[2019-06-27] MEDS: SERTRALINE 50 MG TABLET. PO SCH (07:57)
[2019-06-27] MEDS: NAPROXEN 250 MG TABLET PO SCH (07:57)
[2019-06-27] MEDS: MINERAL OIL/PETROLATUM TOPICAL CREAM 113GM JAR. TP SCH ×2 (07:58→21:00)
[2019-06-27] MEDS: CETIRIZINE HCL 10 MG TABLET PO SCH (07:58)
[2019-06-27] MEDS: LIDOCAINE (700MG/PATCH) PATCH. TD SCH (07:58)
[2019-06-27] MEDS: HYDROCORTISONE 1% TOPICAL OINTMENT 30GM TUBE. TP SCH ×2 (07:58→21:00)
--- NOTE | 2019-06-27 08:46 | NUR ---
Wound Care Wound care follow up for wound to right great toe. Pt has scab at base of toe nail with no drainage coming out from under nail at this time. Toe is slightly swollen and very tender. Painted toe with Betadine and left RONAN. WC will continue to follow for possible changes.
[2019-06-27] MEDS: LORazepam 1 MG TABLET PO PRN (10:18)
--- NOTE | 2019-06-27 11:22 | NUR ---
Patient has had a good morning, took medications crushed in pudding. Patient mentioned to staff earlier that he "needed to go." Pt was restless trying to stand. PRN ativan given @1018. Patient is now sitting in the dayroom. No agitation noted, pt denies pain. Will continue to monitor.
[2019-06-27 16:10] VITALS: BP 136/78
[2019-06-27] MEDS: PATCH REMOVAL. MC SCH (21:00)
[2019-06-27] MEDS: ATORVASTATIN CALCIUM 20 MG TABLET PO SCH (21:22)
[2019-06-27] MEDS: MIRTAZAPINE 15 MG TABLET PO SCH (21:22)
--- NOTE | 2019-06-27 21:28 | PDOC ---
Exam Note: Yves Note: Please also refer to the separate dictated note~for this date of service dictated separately.~Patient seen individually. Discussed the patient with Nursing staff reviewed the chart.~Reviewed interim history and current functioning. Reviewed vital signs,~Labs/ Radiology~and current medications noted below. Continue current treatment with the changes noted in the dictated addendum note Assessment: Vital Signs/I&O: Vital Signs Date Time Temp Pulse Resp B/P (MAP) Pulse Ox O2 Delivery O2 Flow Rate FiO2 06/27/19 16:10 97.6 90 16 136/78 (97) 95 06/24/19 05:56 Room Air I & O 06/26/19 06/26/19 06/27/19 14:59 22:59 06:59 Intake Total 480 ml 480 ml Balance 480 ml 480 ml Current Medications: I have reviewed the current psychotropics carefully including drug interactions. Risk benefit ratio favors no change other than as noted in my dictated progress note. 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
[2019-06-28] MEDS: LEVOTHYROXINE 50 MCG TABLET PO SCH (05:30)
[2019-06-28 05:56] VITALS: BP 152/84
[2019-06-28] MEDS: CLINDAMYCIN HCL 150 MG CAPSULE PO SCH ×4 (08:16→19:51)
[2019-06-28] MEDS: CHOLECALCIFEROL (VITAMIN D3) 50,000 UNIT CAPSULE PO SCH (08:16)
[2019-06-28] MEDS: LACTOBACILLUS RHAMNOSUS GG 1 CAPSULE. PO SCH ×2 (08:16→19:51)
[2019-06-28] MEDS: CETIRIZINE HCL 10 MG TABLET PO SCH (08:16)
[2019-06-28] MEDS: QUEtiapine 50 MG TABLET. PO SCH ×3 (08:17→19:51)
[2019-06-28] MEDS: SERTRALINE 50 MG TABLET. PO SCH (08:17)
[2019-06-28] MEDS: NAPROXEN 250 MG TABLET PO SCH (08:17)
[2019-06-28] MEDS: LIDOCAINE (700MG/PATCH) PATCH. TD SCH (08:18)
[2019-06-28] MEDS: CYANOCOBALAMIN (VITAMIN B-12) 1,000 MCG/ML VIAL IM SCH (08:18)
[2019-06-28] MEDS: DIVALPROEX 125 MG CAP.SPRINK PO SCH ×2 (08:18→19:50)
[2019-06-28] MEDS: HYDROCORTISONE 1% TOPICAL OINTMENT 30GM TUBE. TP SCH ×2 (08:19→19:51)
[2019-06-28] MEDS: MINERAL OIL/PETROLATUM TOPICAL CREAM 113GM JAR. TP SCH ×2 (08:19→19:51)
--- NOTE | 2019-06-28 14:46 | NUR ---
Patient is in the dining room for assessments and medications. He is calm, cooperative and compliant. He takes his medications crushed and mixed with pudding. Had a shower today and was very cooperative. No agitation. No c/o or s/s of pain or discomfort.
[2019-06-28 15:51] VITALS: BP 137/88
--- NOTE | 2019-06-28 18:41 | PN ---
DATE: 06/26/2019 PSYCHIATRIC PROGRESS NOTE This late entry 06/26/2019 covers elements not covered in my initial note. SUBJECTIVE: I met with the patient evening of 06/26/2019. Per CLEMENTE Marie, the patient slept 5 hours previous night. He is anxious in the morning, received Ativan p.r.n. better after that. Resistive at lunch, verbally aggressive, but redirected. REVIEW OF SYSTEMS: No CV, , pulmonary, eye, ENT system symptoms on review. Reliability poor. MENTAL STATUS EXAM: Oriented to himself. Insight, judgment, recent and remote memory, attention, concentration, fund of knowledge poor, consistent with his diagnosis mentioned in my initial note. PLAN: No change from initial note, but he slept just 5 hours previous night and we will increase the Remeron from 7.5 mg at bedtime to 15 mg at bedtime. Rest unchanged. MAN Rosanne ALVARES MD DR: COLLINS/marzena JOB#: [id number] / [id number]
--- NOTE | 2019-06-28 18:42 | PN ---
DATE: 06/27/2019 PSYCHIATRIC PROGRESS NOTE This late entry 06/27/2019 covers elements not covered in my initial note. SUBJECTIVE: I met with the patient evening of 06/27/2019. Per nursing report, the patient slept 7 hours previous night. He is anxious, restless in the morning, received Ativan p.r.n., takes his medications crushed. REVIEW OF SYSTEMS: No CV, , pulmonary, eye, ENT system symptoms on review. Reliability poor. MENTAL STATUS EXAM: Oriented to himself. Insight, judgment, recent and remote memory, attention, concentration, fund of knowledge poor, consistent with his diagnosis mentioned in my initial note. PLAN: No change from initial note. MAN Rosanne ALVARES MD DR: COLLINS/marzena JOB#: [id number] / [id number]
[2019-06-28] MEDS: MIRTAZAPINE 15 MG TABLET PO SCH (19:50)
[2019-06-28] MEDS: ATORVASTATIN CALCIUM 20 MG TABLET PO SCH (19:51)
[2019-06-28] MEDS: PATCH REMOVAL. MC SCH (21:00)
--- NOTE | 2019-06-28 21:49 | PDOC ---
Exam Note: Yves Note: Please also refer to the separate dictated note~for this date of service dictated separately.~Patient seen individually. Discussed the patient with Nursing staff reviewed the chart.~Reviewed interim history and current functioning. Reviewed vital signs,~Labs/ Radiology~and current medications noted below. Continue current treatment with the changes noted in the dictated addendum note Assessment: Vital Signs/I&O: Vital Signs Date Time Temp Pulse Resp B/P (MAP) Pulse Ox O2 Delivery O2 Flow Rate FiO2 06/28/19 15:51 97.3 70 16 137/88 (104) 82 06/28/19 05:56 Room Air I & O 06/27/19 06/27/19 06/28/19 15:00 23:00 07:00 Intake Total 840 ml 480 ml Balance 840 ml 480 ml Current Medications: I have reviewed the current psychotropics carefully including drug interactions. Risk benefit ratio favors no change other than as noted in my dictated progress note. Diagnosis: Problems: (1) Major neurocognitive disorder due to traumatic brain injury (2) Anxiety disorder (3) Dementia, vascular, with delusions (4) Dementia, vascular, with depression (5) Dementia in Alzheimer's disease with delusions (6) Dementia in Alzheimer's disease with depression (7) Impulse control disorder MANISH ALVARES MD Jun 28, 2019 21:49
[2019-06-28] MEDS: LORazepam 1 MG TABLET PO PRN (21:55)
[2019-06-28] MEDS: hydrOXYzine HCL 25 MG TABLET PO PRN (22:59)
--- NOTE | 2019-06-29 01:38 | NUR ---
Nursing Note Pt has been increasingly agitated and confused this PM. Ativan, hydroxizine, seroquel and naprosyn PRN given with very little effect. Combative with redirection, attempting to get out of the chair and ambulate on his own, kicking and hitting at staff. Pt would not stay in bed has been setting off the bed alarm, attempting to climb up and out. Paula asked why he won't sleep, he states "you guys aren't sleeping either. Im and old man and I don't care." Pt placed on the floor on comfort mats for his protection.
[2019-06-29 05:22] VITALS: BP 148/69
[2019-06-29] MEDS: LEVOTHYROXINE 50 MCG TABLET PO SCH (05:31)
[2019-06-29] MEDS: LACTOBACILLUS RHAMNOSUS GG 1 CAPSULE. PO SCH ×2 (07:56→20:00)
[2019-06-29] MEDS: CLINDAMYCIN HCL 150 MG CAPSULE PO SCH ×4 (07:56→20:00)
[2019-06-29] MEDS: QUEtiapine 50 MG TABLET. PO SCH ×3 (07:56→20:00)
[2019-06-29] MEDS: SERTRALINE 50 MG TABLET. PO SCH (07:56)
[2019-06-29] MEDS: DIVALPROEX 125 MG CAP.SPRINK PO SCH ×2 (07:56→20:01)
[2019-06-29] MEDS: CETIRIZINE HCL 10 MG TABLET PO SCH (07:56)
[2019-06-29] MEDS: NAPROXEN 250 MG TABLET PO SCH (07:56)
[2019-06-29] MEDS: HYDROCORTISONE 1% TOPICAL OINTMENT 30GM TUBE. TP SCH ×2 (07:57→22:20)
[2019-06-29] MEDS: LIDOCAINE (700MG/PATCH) PATCH. TD SCH (07:57)
[2019-06-29] MEDS: MINERAL OIL/PETROLATUM TOPICAL CREAM 113GM JAR. TP SCH ×2 (07:57→22:20)
[2019-06-29] MEDS: LORazepam 1 MG TABLET PO PRN (09:41)
--- NOTE | 2019-06-29 10:30 | NUR ---
Patient was in the dining room during morning rounding, took medications crushed in pudding, allowed for morning assessment. Patient was a little anxious in the day room, was telling staff that he "needed to get home and put his clothes in the wash." PRN Ativan given @0941. Patient is now sitting in the day room, no agitation noted. Will continue to monitor.
--- NOTE | 2019-06-29 11:18 | NUR ---
Current notes, medication list, and labs faxed to Karen at [facility] for review in preparation for discharge on 06/30/19. SW discharge planning form placed on medical chart.
[2019-06-29 15:47] VITALS: BP 124/80
[2019-06-29] MEDS: ATORVASTATIN CALCIUM 20 MG TABLET PO SCH (20:00)
[2019-06-29] MEDS: MIRTAZAPINE 15 MG TABLET PO SCH (20:00)
[2019-06-29] MEDS: PATCH REMOVAL. MC SCH (21:00)
--- NOTE | 2019-06-29 21:10 | PDOC ---
Exam Note: Yves Note: Please also refer to the separate dictated note~for this date of service dictated separately.~Patient seen individually. Discussed the patient with Nursing staff reviewed the chart.~Reviewed interim history and current functioning. Reviewed vital signs,~Labs/ Radiology~and current medications noted below. Continue current treatment with the changes noted in the dictated addendum note Assessment: Vital Signs/I&O: Vital Signs Date Time Temp Pulse Resp B/P (MAP) Pulse Ox O2 Delivery O2 Flow Rate FiO2 06/29/19 15:47 98.5 75 18 124/80 (95) 94 06/29/19 05:22 Room Air I & O 06/28/19 06/28/19 06/29/19 15:00 23:00 07:00 Intake Total 680 ml Balance 680 ml Current Medications: I have reviewed the current psychotropics carefully including drug interactions. Risk benefit ratio favors no change other than as noted in my dictated progress note. Diagnosis: Problems: (1) Major neurocognitive disorder due to traumatic brain injury (2) Anxiety disorder (3) Dementia, vascular, with delusions (4) Dementia, vascular, with depression (5) Dementia in Alzheimer's disease with delusions (6) Dementia in Alzheimer's disease with depression (7) Impulse control disorder MANISH ALVARES MD Jun 29, 2019 21:10
--- NOTE | 2019-06-30 00:37 | NUR ---
Nursing Notes The patient was located in the day room for his medication and assessment. The patient was compliant with his medication and took some whole and others crushed in pudding. The patient was compliant with HS cares. The patient is currently sleeping in his room.
[2019-06-30] MEDS ORDERED: CLIN300C8 PO (01:33)
[2019-06-30] MEDS ORDERED: MAG30ORA2 PO (01:39)
[2019-06-30] MEDS ORDERED: METH28OI2 TP (01:41)
[2019-06-30] MEDS ORDERED: ACET325T9 PO (01:41)
[2019-06-30] MEDS ORDERED: SERT50TA PO (01:43)
[2019-06-30] MEDS ORDERED: MIRT15TA3 PO (01:43)
[2019-06-30] MEDS ORDERED: SERT25TA PO (01:45)
[2019-06-30] MEDS ORDERED: QUET25TA PO (01:46)
[2019-06-30] MEDS ORDERED: HYDR25TA PO (01:47)
[2019-06-30] MEDS ORDERED: MAGN400O7 PO (01:48)
[2019-06-30] MEDS ORDERED: LACT1CAP21 PO (01:49)
[2019-06-30] MEDS ORDERED: HYDR28.430 TP (01:50)
[2019-06-30] MEDS ORDERED: LIDO700A21 TP (01:51)
[2019-06-30] MEDS ORDERED: LANO250L TP (01:52)
[2019-06-30] MEDS ORDERED: REMOVAL MC (01:54)
[2019-06-30 05:15] VITALS: BP 160/79
[2019-06-30] MEDS: LEVOTHYROXINE 50 MCG TABLET PO SCH (05:52)
[2019-06-30] MEDS: DIVALPROEX 125 MG CAP.SPRINK PO SCH (08:53)
[2019-06-30] MEDS: LIDOCAINE (700MG/PATCH) PATCH. TD SCH (08:53)
[2019-06-30] MEDS: NAPROXEN 250 MG TABLET PO SCH (08:53)
[2019-06-30] MEDS: SERTRALINE 50 MG TABLET. PO SCH (08:54)
[2019-06-30] MEDS: MINERAL OIL/PETROLATUM TOPICAL CREAM 113GM JAR. TP SCH (08:54)
[2019-06-30] MEDS: HYDROCORTISONE 1% TOPICAL OINTMENT 30GM TUBE. TP SCH (08:54)
[2019-06-30] MEDS: LACTOBACILLUS RHAMNOSUS GG 1 CAPSULE. PO SCH (08:54)
[2019-06-30] MEDS: CLINDAMYCIN HCL 150 MG CAPSULE PO SCH (08:54)
[2019-06-30] MEDS: CETIRIZINE HCL 10 MG TABLET PO SCH (08:54)
[2019-06-30] MEDS: QUEtiapine 50 MG TABLET. PO SCH (08:54)
[2019-06-30] MEDS ORDERED: DIVA125C2 PO (09:58)
--- NOTE | 2019-06-30 10:30 | NUR ---
Nursing note: Pt was in dining room for morning meds and assessment. Pt was compliant with taking his meds whole and was cooperative with his assessment. Pt has been pleasant and in the day room all morning. Will continue to monitor.
--- NOTE | 2019-06-30 10:57 | NUR ---
SW spoke to pt. nursing requesting during report to pt. facility, nurse discuss current condition of pt. foot, follow up care, and to inform them pt. has been LOS due to trying to get out of his chair without assistance.
--- NOTE | 2019-06-30 11:32 | NUR ---
Transition Record was faxed to follow-up provider with the following elements: Reason for admission, procedures, tests, principal diagnosis, pending studies, patient instructions, 25/01 contact information for unit, phone number to obtain pending test results, plan for follow-up care, physician follow-up, advanced directive information, and medication list with dose, duration and instructions. This information was included in the following documents: History and physical, lab results, study results, progress notes, social work planning form, DC instruction form, patient visit summary, and medication reconciliation form. Date & time record faxed: 06/30/19 @ 0408 Record faxed to: Seda Griffin @ [phone] Record discussed with/ report given to: Celestina @ [phone]
--- NOTE | 2019-06-30 12:45 | PN ---
DATE: 06/28/2019 PSYCHIATRIC PROGRESS NOTE This late entry 06/28/2019 covers elements not covered in my initial note. SUBJECTIVE: I met with the patient evening of 06/28/2019. The patient slept 6-3/4 hours previous night. He remains confused, anxious, sedated in the evening. He is unable to swallow, Depakote ER. We have changed it to Depakote Sprinkles 500 b.i.d. No PRNs given on 06/28/2019. REVIEW OF SYSTEMS: No CV, , pulmonary, eye, ENT system symptoms on review. Reliability poor. MENTAL STATUS EXAM: Oriented to himself. Insight, judgment, recent and remote memory, attention, concentration, fund of knowledge poor, consistent with his diagnosis mentioned in my initial note. PLAN: No change from initial note. MAN Rosanne ALVARES MD DR: COLLINS/marzena JOB#: [id number] / [id number]
--- NOTE | 2019-06-30 12:46 | PN ---
DATE: 06/29/2019 PSYCHIATRIC PROGRESS NOTE This late entry 06/29/2019 covers elements not covered in my initial note. SUBJECTIVE: I met with the patient evening of 06/29/2019. The patient slept just 3/4 hours previous night, received Ativan in the morning due to restlessness in the evening, he soiled himself, takes meds crushed. REVIEW OF SYSTEMS: No CV, , pulmonary, eye, ENT system symptoms on review. Reliability poor. MENTAL STATUS EXAM: Oriented to himself. Insight, judgment, recent and remote memory, attention, concentration, fund of knowledge poor, consistent with his diagnosis mentioned in my initial note. PLAN: No change from initial note, but we will monitor his sleep and add p.r.n. as needed to assist with this, perhaps trazodone since he is already on Remeron. MAN Rosanne ALVARES MD DR: COLLINS/marzena JOB#: [id number] / [id number]
--- NOTE | 2019-06-30 15:19 | NUR ---
SW spoke to Analy, Nurse at [facility], regarding prescription last picker from [facility]. [facility] was unable to fill pt. prescriptions without a doctors signature on each page, which was done and faxed to both the pharmacy and pt. facility. [facility] staff information the nurse the last delivery for the day had already gone out, and pt. would not get his prescriptions until 07/03/2019 unless someone pick them up. Analy reported to this SW she would be contacting the family to see if they would be available to get pt. prescriptions or if someone from the facility would need to pick them up, as pt. not getting his medications until Wednesday was not an option.
--- NOTE | 2019-06-30 15:31 | NUR ---
[facility] pharmacy informed this nurse they were unable to fill pt's prescriptions without a signature on each page of medication list. Signatures were obtained and the [facility] Pharmacist at [facility] was going to contact [facility] to determine which medications were needing to be filled.
--- NOTE | 2019-06-30 18:36 | DS ---
DATE OF DISCHARGE: 06/30/2019 DISCHARGE SUMMARY/PSYCHIATRIC PROGRESS NOTE This note covers elements not covered in my initial note 06/30/2019. REASON FOR ADMISSION: Please refer to the admission history for details. Briefly, the patient is an 83-year-old male referred to us from [facility], referred by his primary care physician on account of worsening confusion, threatening staff, waving his fist at staff, being combative with redirection, following staff while threatening them, exit seeking, refusing medications. He had failed outpatient psychiatric interventions. Behaviors were deemed dangerous, unmanageable resulting in this referral. SIGNIFICANT FINDINGS AND CLINICAL COURSE: Following admission, the patient was seen daily individually by myself from a psychiatric standpoint, medical followup with Dr. Soria. The patient was quite confused, restless, intermittently agitated. Adjustments were made in his psychotropics. He seemed to respond to a combination of Zoloft 50 mg a day, Depakote Sprinkles 500 mg b.i.d. with a Valproic acid level therapeutic at 55, Seroquel 50 mg b.i.d. and 50 mg at bedtime, 25 mg q. 4 hours p.r.n., Ativan p.r.n., Atarax p.r.n. Remeron 15 mg at bedtime. REVIEW OF SYSTEMS: Prior to discharge on 06/30/2019, ambulation impaired. No CV, , pulmonary, eye, ENT system symptoms on review. Reliability poor. MENTAL STATUS EXAM: Oriented to himself. Insight, judgment, recent and remote memory, attention, concentration, fund of knowledge poor, consistent with his diagnosis. CONDITION AT DISCHARGE: Improved. FINAL DIAGNOSES: Major neurocognitive disorder, Alzheimer, vascular with delusion, depression, behavioral disturbance; anxiety disorder, unspecified; impulse control disorder, unspecified. Rest unchanged from admission. DISCHARGE MEDICATIONS: Please refer to the [facility]AD. DISCHARGE INSTRUCTIONS: [facility] at the [facility]. Time for discharge to management greater than 30 minutes. MANISH ALVARES MD DR: COLLINS/marzena JOB#: [id number] / [id number]
--- NOTE | 2019-06-30 21:13 | PDOC ---
Exam Note: Yves Note: Please also refer to the separate dictated note~for this date of service dictated separately.~Patient seen individually. Discussed the patient with Nursing staff reviewed the chart.~Reviewed interim history and current functioning. Reviewed vital signs,~Labs/ Radiology~and current medications noted below. Continue current treatment with the changes noted in the dictated addendum note Assessment: Vital Signs/I&O: Vital Signs Date Time Temp Pulse Resp B/P (MAP) Pulse Ox O2 Delivery O2 Flow Rate FiO2 06/30/19 05:15 97.7 89 20 160/79 (106) 94 Room Air I & O 06/29/19 06/29/19 06/30/19 15:00 23:00 07:00 Intake Total 240 ml 240 ml Balance 240 ml 240 ml Current Medications: I have reviewed the current psychotropics carefully including drug interactions. Risk benefit ratio favors no change other than as noted in my dictated progress note. Diagnosis: Problems: (1) Major neurocognitive disorder due to traumatic brain injury (2) Anxiety disorder (3) Dementia, vascular, with delusions (4) Dementia, vascular, with depression (5) Dementia in Alzheimer's disease with delusions (6) Dementia in Alzheimer's disease with depression (7) Impulse control disorder MANISH ALVARES MD Jun 30, 2019 21:13
[2019-07-26] MEDS ORDERED: CYANOCOBALAMIN (VITAMIN B-12) 1,000 MCG/ML VIAL IM SCH (09:00)
== END 2019-06-30 11:43 | DRG 57 ==
LOC: ER 15:03 → GEROPSY 16:30
PROVIDERS: ADMIT Psychiatry & Neurology Psychiatry; ATTEND Psychiatry & Neurology Psychiatry
DX: G30.9 Alzheimer's disease, unspecified (principal); S06.9X9A Unspecified intracranial injury with loss of consciousness of unspecified duration, initial encounter; F01.51 Vascular dementia, unspecified severity, with behavioral disturbance; F02.81 Dementia in other diseases classified elsewhere, unspecified severity, with behavioral disturbance; E03.9 Hypothyroidism, unspecified; E78.5 Hyperlipidemia, unspecified; F32.9 Major depressive disorder, single episode, unspecified; F41.9 Anxiety disorder, unspecified; F63.9 Impulse disorder, unspecified; I10 Essential (primary) hypertension; Z66 Do not resuscitate; Z79.899 Other long term (current) drug therapy; Z87.820 Personal history of traumatic brain injury
CPT/HCPCS: 36415; 73630; 78315; 80048; 80053; 80061; 80164; 81001; 82306; 82607; 83036; 83540; 83550; 83735; 84436; 84443; 84480; 84550; 85025; 85651; 86140; 86592; A9503; J3420; 97110; 97116; 97530; 99285-25